=== PATIENT | female | born 1995 | race African-American/Black ===

== ENCOUNTER 2017-03-17 22:50 | Emergency (ER) | payer SELFPAY ==
[2017-03-17 23:16] LABS: APPEARANCE,URINE CLOUDY; BILIRUBIN,URINE NEGATIVE (NEGATIVE); GLUCOSE, URINE NEGATIVE (NEGATIVE); KETONES,URINE 20 mg/dL (NEGATIVE); LEUKOCYTE ESTERASE,URINE MODERATE (NEGATIVE); NITRITE,URINE NEGATIVE (NEGATIVE); PROTEIN,URINE 30 mg/dL (NEGATIVE); URINE SPECIFIC GRAVITY 1.025
--- NOTE | 2017-03-17 23:56 | ER Document Report ---
ED GI/ - General Mode of Arrival: Ambulatory Information source: Patient TRAVEL OUTSIDE OF THE [place] IN LAST 30 DAYS: No <ELTON EMERSON - Last Filed: 03/18/17 00:53> <KIM BARCENAS - Last Filed: 03/18/17 01:52> - General Chief Complaint: Abdominal Pain Stated Complaint: ABDOMINAL PAIN Time Seen by Provider: 03/17/17 23:56 Notes: Patient is a 21 year old female presenting to the emergency department for low abdominal pain. Patient states her pain was onset around 09:30 this morning and she had to leave work because of the pain. Patient describes the pain as " really bad period cramps." Patient states she had a positive test at home. Patient denies any nausea, vomiting, or diarrhea. Patient's last menstrual period was 01/30/2017-02/06/2017. Patient has never been before, she is . Patient denies any surgical history. Patient is a smoker but states she will quit now that she is . (ELTON EMERSON) - Related Data Allergies/Adverse Reactions: No Known Allergies Allergy (Verified 03/18/17 01:39) Past Medical History - General Information source: Patient - Social History Smoking Status: Current Every Day Smoker Chew tobacco use (# tins/day): No Smoking Education Provided: Yes Frequency of alcohol use: None Drug Abuse: None Family History: Other - asthma Patient has suicidal ideation: No Patient has homicidal ideation: No Pulmonary Medical History: Reports: Hx Bronchitis - likely Neurological Medical History: Reports: Hx Migraine Surgical Hx: Negative - Immunizations Immunizations up to date: Yes Hx Diphtheria, Pertussis, Tetanus Vaccination: Yes <ELTON EMERSON - Last Filed: 03/18/17 00:53> Review of Systems - Review of Systems Constitutional: No symptoms reported EENT: No symptoms reported Cardiovascular: No symptoms reported Respiratory: No symptoms reported Gastrointestinal: See HPI, Abdominal pain. denies: Diarrhea, Nausea, Vomiting Genitourinary: No symptoms reported Female Genitourinary: See HPI, Last menstrual period - 01/30/2017-02/06/2017, Musculoskeletal: No symptoms reported Skin: No symptoms reported Hematologic/Lymphatic: No symptoms reported Neurological/Psychological: No symptoms reported -: Yes All other systems reviewed and negative <ELTON EMERSON - Last Filed: 03/18/17 00:53> Physical Exam - Vital signs Interpretation: Normal <JAIRONNIKOLE BUTLERINE - Last Filed: 03/18/17 00:53> <KIM BARCENAS - Last Filed: 03/18/17 01:52> - Vital signs Vitals: Temp Pulse Resp BP Pulse Ox 98.6 F 78 18 113/67 99 03/17/17 22:52 03/17/17 22:52 03/17/17 22:52 03/17/17 22:52 03/17/17 22:52 - Notes Notes: GENERAL: Alert, interacts well. Mild distress. HEAD: Normocephalic, atraumatic. EYES: Appear normal. Pupils equal, round, and reactive to light. ENT: Moist mucus membranes, tongue midline. NECK: Full range of motion. Supple. Trachea midline. LUNGS: Clear to auscultation bilaterally, no wheezes, rales, or rhonchi. No respiratory distress. HEART: Regular rate and rhythm. No murmurs, gallops, or rubs. ABDOMEN: Soft, suprapubic tenderness to palpation. Non-distended. Normal bowel sounds. EXTREMITIES: Moves all 4 extremities spontaneously. Normal strength. No edema. NEUROLOGICAL: Alert and oriented x3. Normal speech. No focal neurological deficits. GCS 15. PSYCH: Normal affect, normal mood. SKIN: Warm, dry, normal turgor. No rashes or lesions noted. (ELTON EMERSON) Course - Laboratory Result Diagrams: 03/17/17 23:59 <IDANIAELTON - Last Filed: 03/18/17 00:53> - Laboratory Result Diagrams: 03/17/17 23:59 - Diagnostic Test Radiology reviewed: Reports reviewed - Ultrasound shows a 6 week 6 day intrauterine with heart rate 121 and 8.9 cm subchorionic bleed. <KIM BARCENAS - Last Filed: 03/18/17 01:52> - Vital Signs Vital signs: Temp Pulse Resp BP Pulse Ox 98.6 F 78 18 113/67 99 03/17/17 22:52 03/17/17 22:52 03/18/17 01:40 03/17/17 22:52 03/17/17 22:52 - Laboratory Laboratory results interpreted by me: 03/17/17 03/17/17 23:00 23:59 WBC 11.1 H RBC 3.70 L Hgb 11.0 L Hct 32.4 L RDW 18.3 H Urine Protein 30 H Urine Ketones 20 H Urine Urobilinogen 4.0 H Ur Leukocyte Esterase MODERATE H Urine Ascorbic Acid 40 H Urine HCG, Qual POSITIVE H Discharge <ELTON EMERSON - Last Filed: 03/18/17 00:53> <KIM BARCENAS - Last Filed: 03/18/17 01:52> - Discharge Clinical Impression: with 6 completed weeks gestation Subchorionic hemorrhage in first trimester Qualifiers: Fetus number: single or unspecified fetus Qualified Code(s): O41.8X10 - Other specified disorders of amniotic fluid and membranes, first trimester, not applicable or unspecified; O46.8X1 - Other antepartum hemorrhage, first trimester Urinary tract infection Qualifiers: Urinary tract infection type: site unspecified Hematuria presence: without hematuria Qualified Code(s): N39.0 - Urinary tract infection, site not specified Condition: Stable Disposition: HOME, SELF-CARE Additional Instructions: Urinary Tract Infection: Your evaluation indicates that you have a urinary tract infection. This is due to germs growing in the bladder. This is a common problem. This infection usually responds quickly to antibiotics. Your antibiotic should be taken exactly as prescribed. Drink plenty of fluids -- three to four quarts a day. Occasionally, a bladder anesthetic will be prescribed to help stop the feeling of urgency until the antibiotic has a chance to clear the infection. This may cause your urine to be dark orange. Certain urine infections require a culture. If the doctor obtained a culture, the results will be back in two days. You should call to see if a change in treatment is needed. A repeat urinalysis after you finish treatment is often recommended. The physician will let you know if further testing is required. Call the doctor if you develop fever, chills, flank pain, inability to urinate, or blood in the urine. I personally performed the services described in the documentation, reviewed and edited the documentation which was dictated to the scribe in my presence, and it accurately records my words and actions. : You are . care is best started as early in as possible. If you're unsure about continuing this , you should discuss this with your physician or with [facility]. You should take only medications approved by your physician. Acetaminophen can safely be taken for minor pains. As a rule, medication for chronic conditions such as asthma or seizures can safely be continued. You should discuss with the physician every medicine you take. Any regular exercise program can be continued. Talk to your physician, however, before engaging in competitive or demanding sports. Alcohol, smoking, and "street drugs" are dangerous to your baby. Cocaine is especially dangerous. Don't use any illicit drugs! //////////////////////////////////////////////////////////////////////////////// //////////////////////////////////////////////////////////////////////////////// //////////////// Your urine analysis suggest you have a urinary tract infection. The urine will be cultured and if a change in antibiotics as needed you will be contacted. Take the antibiotics as prescribed and drink plenty of fluids. Your ultrasound shows a 6 week 6 day intrauterine with heart rate of 121. There is also a small subchorionic bleed which does put this at risk of miscarriage. You should rest, abstain from sex and avoid physical exertion until you no longer have any pelvic discomfort. It would not be unexpected to see some vaginal bleeding develop over the next several days. There is no reason to come to the emergency room if that occurs. Follow-up with the [facility] or with [facility] this week for recheck. RETURN TO THE EMERGENCY ROOM IF ANY NEW OR WORSENING SYMPTOMS. Prescriptions: Cephalexin Monohydrate [Keflex 500 mg Capsule] 500 mg PO QID #10 capsule Referrals: [facility] [Provider Group] - Follow up in 3-5 days Scribe Attestation: 03/18/17 00:39 I personally performed the services described in the documentation, reviewed and edited the documentation which was dictated to the scribe in my presence, and it accurately records my words and actions. (KIM BARCENAS) Scribe Documentation - Scribe Written by Farideh:: Farideh Mi, 03/18/2017 1:00 acting as scribe for :: Nyla <ELTON EMERSON - Last Filed: 03/18/17 00:53>
[2017-03-18 00:28] LABS: ABSOLUTE EOSINOPHILS # (AUTO) 0.1 10^3/uL (0.0-0.6); ABSOLUTE LYMPHOCYTES (AUTO) 2.2 10^3/uL (0.5-4.7); ABSOLUTE MONOCYTES (AUTO) 0.9 10^3/uL (0.1-1.4); ABSOLUTE NEUT (AUTO) 7.9 10^3/uL (1.7-8.2); BASOPHILS % (AUTO) 0.3 % (0-2); EOSINOPHILS % (AUTO) 0.5 % (0-6); HEMATOCRIT 32.4 % (36.0-47.0); HGB HCT DIFFERENCE 0.6; LYMPHOCYTES % (AUTO) 19.9 % (13-45); MEAN CORPUSCULAR HEMOGLOBIN 29.7 pg (27.0-33.4); MEAN CORPUSCULAR HGB CONC 33.9 g/dL (32.0-36.0); MEAN CORPUSCULAR VOLUME 87 fl (80-97); MONOCYTES % (AUTO) 8.4 % (3-13); RED CELL DISTRIBUTION WIDTH 18.3 % (11.5-14.0); SEGMENTED NEUTROPHILS % (AUTO) 70.9 % (42-78); WHITE BLOOD COUNT 11.1 10^3/uL (4.0-10.5)
--- NOTE | 2017-03-18 01:25 | RADIOLOGY REPORT (SQ) ---
EXAM DESCRIPTION: U/S OB TRANSVAGINAL W/O DOP COMPLETED DATE/TIME: 03/18/2017 12:48 am REASON FOR STUDY: pelvic pain, + hcG COMPARISON: None. TECHNIQUE: Transvaginal static and realtime grayscale images acquired of the pelvis. Additional heather cted spectral and color Doppler images recorded. All images stored on PACs. bHCG: Not available. LIMITATIONS: None. FINDINGS: FETUS: Living intrauterine . EGA: 6 weeks and 6 days. LAMIN: 11/05/2017. FHR: 121 beats per minute. SUBCHORIONIC BLEED: Yes. SIZE OF BLEED: 0.9 x 0.8 x 0.3 cm. UTERUS: No masses. No anomalies. CERVICAL LENGTH: 1.7 cm. Closed. RIGHT ADNEXA: Normal ovary with normal vascular flow. No adnexal free fluid. Likely 2.2 cm corpus luteal cyst. 3.6 cm right ovary. LEFT ADNEXA: Normal ovary with normal vascular flow. No adnexal free fluid. No adnexal masses. 2.4 cm left ovary. FREE FLUID: None. OTHER: No other significant finding. IMPRESSION: LIVING INTRAUTERINE , at-risk with 0.9 cm subchorionic hemorrhage. EGA 6 weeks 6 days Trimester of : First - 0 to 13 weeks. TECHNICAL DOCUMENTATION: JOB ID: [id number] [employer]- All Rights Reserved
[2017-03-18] MEDS ORDERED: CEPHALEXIN 500 MG CAPSULE PO ONE (01:44)
[2017-03-18 02:13] VITALS: BP 118/72
== END 2017-03-18 02:10 | disposition home or self-care (01) ==
LOC: ER 22:50
DX: O23.41 Unspecified infection of urinary tract in pregnancy, first trimester (principal); O41.8X10 Other specified disorders of amniotic fluid and membranes, first trimester, not applicable or unspecified; O46.8X1 Other antepartum hemorrhage, first trimester; R10.9 Unspecified abdominal pain; F17.200 Nicotine dependence, unspecified, uncomplicated; Z3A.01 Less than 8 weeks gestation of pregnancy
CPT/HCPCS: 36415; 76817; 81001; 81025; 84702; 85025; 87086; 99284

== ENCOUNTER 2017-05-28 13:15 | Emergency (ER) | payer MEDICAID ==
--- NOTE | 2017-05-28 13:38 | ER Document Report ---
ED Medical Screen (RME) - General Chief Complaint: Abdominal Pain Stated Complaint: ABDOMINAL PAIN Time Seen by Provider: 05/28/17 13:33 Notes: 22-year-old female patient G1 p.o. is 16 weeks . Reports this morning of left lower quadrant abdominal pain cramping which seems to radiate into the back. She states this morning she felt a need to have a bowel movement, could not go despite straining and developed some dry heaves. She does not have a history of kidney stones. She was seen here a few months ago when she found out she is and diagnosed a UTI that time ended up growing lactobacillus in her urine clean- catch. I have greeted and performed a rapid initial assessment of this patient. A comprehensive ED assessment and evaluation of the patient, analysis of test results and completion of the medical decision making process will be conducted by additional ED providers. TRAVEL OUTSIDE OF THE [place] IN LAST 30 DAYS: No - Related Data Allergies/Adverse Reactions: No Known Allergies Allergy (Verified 03/18/17 01:39) Past Medical History Pulmonary Medical History: Reports: Hx Bronchitis - likely Denies: Hx Asthma, Hx Pneumonia Neurological Medical History: Reports: Hx Migraine Renal/ Medical History: Denies: Hx Peritoneal Dialysis - Immunizations Immunizations up to date: Yes Hx Diphtheria, Pertussis, Tetanus Vaccination: Yes Physical Exam - Vital signs Vitals: Temp Pulse Resp BP Pulse Ox 97.6 F 75 18 104/64 100 05/28/17 13:23 05/28/17 13:23 05/28/17 13:23 05/28/17 13:23 05/28/17 13:23 Course - Vital Signs Vital signs: Temp Pulse Resp BP Pulse Ox 97.6 F 75 18 104/64 100 05/28/17 13:23 05/28/17 13:23 05/28/17 13:23 05/28/17 13:23 05/28/17 13:23
[2017-05-28 14:08] LABS: APPEARANCE,URINE CLOUDY; BILIRUBIN,URINE NEGATIVE (NEGATIVE); GLUCOSE, URINE NEGATIVE (NEGATIVE); KETONES,URINE NEGATIVE (NEGATIVE); LEUKOCYTE ESTERASE,URINE LARGE (NEGATIVE); NITRITE,URINE NEGATIVE (NEGATIVE); PROTEIN,URINE 100 mg/dL (NEGATIVE); URINE SPECIFIC GRAVITY 1.029
[2017-05-28 14:13] LABS: BACTERIA,URINE 2+ /HPF
--- NOTE | 2017-05-28 15:04 | ER Document Report ---
ED GI/ - General Chief Complaint: Abdominal Pain Stated Complaint: ABDOMINAL PAIN Time Seen by Provider: 05/28/17 13:33 Notes: The patient is a 22-year-old, 16 weeks , presents with 1 day of suprapubic pain radiating into her left flank with mild dysuria. She had a UTI 6 weeks ago and this feels similar. Patient also having some constipation with hard stools. She denies nausea, vomiting, diarrhea, vaginal bleeding, vaginal discharge, fevers or rash. TRAVEL OUTSIDE OF THE [place] IN LAST 30 DAYS: No - Related Data Allergies/Adverse Reactions: No Known Allergies Allergy (Verified 03/18/17 01:39) Past Medical History - General Information source: Patient - Social History Smoking Status: Never Smoker Chew tobacco use (# tins/day): Yes Frequency of alcohol use: None Family History: Other - asthma Patient has suicidal ideation: No Patient has homicidal ideation: No Pulmonary Medical History: Reports: Hx Bronchitis - likely Denies: Hx Asthma, Hx Pneumonia Neurological Medical History: Reports: Hx Migraine Renal/ Medical History: Denies: Hx Peritoneal Dialysis - Immunizations Immunizations up to date: Yes Hx Diphtheria, Pertussis, Tetanus Vaccination: Yes Review of Systems - Review of Systems Notes: REVIEW OF SYSTEMS: CONSTITUTIONAL: -fevers, -chills EENT: -eye pain, -difficulty swallowing, -nasal congestion CARDIOVASCULAR:-chest pain, -syncope. RESPIRATORY: -cough, -SOB GASTROINTESTINAL: +suprapubic abdominal pain, - nausea, -vomiting, -diarrhea GENITOURINARY: +dysuria, -hematuria MUSCULOSKELETAL: +left flank pain, -neck pain SKIN: -rash or skin lesions. HEMATOLOGIC: -easy bruising or bleeding. LYMPHATIC: -swollen, enlarged glands. NEUROLOGICAL: -altered mental status or loss of consciousness, -headache, - neurologic symptoms PSYCHIATRIC: -anxiety, -depression. ALL OTHER SYSTEMS REVIEWED AND NEGATIVE. Physical Exam - Vital signs Vitals: Temp Pulse Resp BP Pulse Ox 97.6 F 75 18 104/64 100 05/28/17 13:23 05/28/17 13:23 05/28/17 13:23 05/28/17 13:23 05/28/17 13:23 - Notes Notes: PHYSICAL EXAMINATION: GENERAL: Well-appearing, well-nourished and in no acute distress. HEAD: Atraumatic, normocephalic. EYES: Pupils equal round and reactive to light, extraocular movements intact, sclera anicteric, conjunctiva are normal. ENT: nares patent, oropharynx clear without exudates. Moist mucous membranes. NECK: Normal range of motion, supple without lymphadenopathy LUNGS: Breath sounds clear to auscultation bilaterally and equal. No wheezes rales or rhonchi. HEART: Regular rate and rhythm without murmurs ABDOMEN: Soft, gravid, mild suprapubic tenderness, normoactive bowel sounds. No guarding, no rebound. No masses appreciated. BACK: Left CVA tenderness. EXTREMITIES: Normal range of motion, no pitting or edema. No cyanosis. NEUROLOGICAL: Cranial nerves grossly intact. Normal speech, normal gait. Normal sensory and motor exams. PSYCH: Normal mood, normal affect. SKIN: Warm, Dry, normal turgor, no rashes or lesions noted. Course - Re-evaluation Re-evalutation: Patient appears well. Bedside ultrasound shows a single intrauterine fetus with heart rate 162 and size consistent with dates. No kidney stones or hydronephrosis on bedside ultrasound. Urinalysis shows evidence of a UTI and with the left flank pain, will treat for pyelonephritis with Keflex. Patient given very strict return precautions and she understands. She will follow-up with her OB at [facility] this week for a recheck of her symptoms. - Vital Signs Vital signs: Temp Pulse Resp BP Pulse Ox 97.6 F 75 18 104/64 100 05/28/17 13:23 05/28/17 13:23 05/28/17 13:23 05/28/17 13:23 05/28/17 13:23 - Laboratory Laboratory results interpreted by me: 05/28/17 13:38 Urine Protein 100 H Urine Urobilinogen 4.0 H Ur Leukocyte Esterase LARGE H Urine Ascorbic Acid 40 H Discharge - Discharge Clinical Impression: Pyelonephritis affecting Qualifiers: Trimester: second trimester Qualified Code(s): O23.02 - Infections of kidney in , second trimester Condition: Stable Disposition: HOME, SELF-CARE Additional Instructions: PYELONEPHRITIS: Your evaluation shows evidence of pyelonephritis. This is an infection in the kidney. Typical symptoms are fever, pain in the flank, pain on urination, and frequent urination. Many cases of pyelonephritis can be treated at home. Hospital care may be necessary for patients who are very ill, or elderly or . Pyelonephritis is treated with antibiotics. Be sure to take all the medication as prescribed. Drink plenty of liquids (about three quarts per day) . You may take acetaminophen for fever. You should feel significantly improved within two days. You should have a recheck of your urine in about one week to insure that the infection is gone. Return for a re-examination if your symptoms worsen in any way -- such as high fever, shaking chills, severe weakness or dizziness, severe pain, or inability to pass your urine. ANTIBIOTIC THERAPY: You have been given an antibiotic prescription. It's important that you take all the medication, unless instructed otherwise by your physician. Failure to complete the entire course can result in relapse of your condition. Common side effects of antibiotics include nausea, intestinal cramping, or diarrhea. Women may develop vaginal yeast infections, and babies can get yeast (thrush) in the mouth following the use of antibiotics. Contact your physician if you develop significant side effects from this medication. Allergy to this antibiotic can result in hives, wheezing, faintness, or itching. If symptoms of allergy occur, stop the medication and call the doctor. CEPHALEXIN: The antibiotic you've been prescribed is a member of the cephalosporin class. This type of antibiotic covers a wide variety of infections, including those of the skin, lungs, and urinary tract. It's useful for staph infections. This antibiotic is slightly similar to the penicillin family. In rare cases , a person who is allergic to penicillin will also be allergic to this medication. If you have had a severe allergic reaction to penicillin, and have not taken this antibiotic since that time, notify your doctor. Antibiotics which cover many germs ("broad spectrum" antibiotics) are more likely to cause diarrhea or "yeast" infections. Women prone to vaginal yeast problems may suffer an attack after taking this antibiotic. In infants, oral thrush (white spots "stuck" on the cheek) or yeast diaper rash may result. See your doctor if these problems occur. Call at once if you develop itching, hives , shortness of breath, or lightheadedness. USE OF ACETAMINOPHEN (Tylenol): Acetaminophen may be taken for pain relief or fever control. It's much safer than aspirin, offering a wider range of "safe" dosages. It is safe during . Some brand names are Tylenol, Panadol, Datril, Anacin 3, Tempra, and Liquiprin. Acetaminophen can be repeated every four hours. The following are maximum recommended dosages: >89 pounds or adults 650 mg to 900 mg Acetaminophen can be repeated every four hours. Maximum dose not to exceed 4000 mg a day. FOLLOW-UP CARE: If you have been referred to a physician for follow-up care, call the physician s office for an appointment as you were instructed or within the next two days. If you experience worsening or a significant change in your symptoms, notify the physician immediately or return to the Emergency Department at any time for re-evaluation. Prescriptions: Cephalexin Monohydrate [Keflex 500 mg Capsule] 500 mg PO TID 10 Days capsule Referrals: [facility] [Provider Group] - Follow up as needed
[2017-05-28 15:24] VITALS: BP 96/58
== END 2017-05-28 15:19 | disposition home or self-care (01) ==
LOC: ER 13:15
DX: O23.02 Infections of kidney in pregnancy, second trimester (principal); O99.612 Diseases of the digestive system complicating pregnancy, second trimester; K59.00 Constipation, unspecified; O26.892 Other specified pregnancy related conditions, second trimester; R10.30 Lower abdominal pain, unspecified; R30.0 Dysuria; Z72.0 Tobacco use; Z3A.16 16 weeks gestation of pregnancy
CPT/HCPCS: 81001; 99284

== ENCOUNTER 2017-09-21 23:20 | Outpatient (CLI) | payer MEDICAID ==
[2017-09-22 00:42] LABS: APPEARANCE,URINE CLEAR; BILIRUBIN,URINE MODERATE (NEGATIVE); COLOR,URINE YELLOW; GLUCOSE, URINE NEGATIVE (NEGATIVE); KETONES,URINE NEGATIVE (NEGATIVE); LEUKOCYTE ESTERASE,URINE LARGE (NEGATIVE); NITRITE,URINE NEGATIVE (NEGATIVE); PROTEIN,URINE 30 mg/dL (NEGATIVE); URINE SPECIFIC GRAVITY 1.021
--- NOTE | 2017-09-22 01:17 | Non Stress Test Report ---
Non Stress Test Datetime Report Generated by CPN: 09/22/2017 01:16 DEMOGRAPHIC EGA NST: 33.3 INDICATION Indication for Study: Ordered by Provider URINE RESULTS Urine Protein, NST: Positive Urine Ketones - NST: Negative Urine Glucose - NST: Negative Urine Blood - NST: Negative MONITORING Monitor Explained: Monitor Explained; Test Explained; Patient Verbalized Understanding Time on Monitor: 09/21/2017 23:38 Time off Monitor: 09/22/2017 01:13 NST Duration: 95 NST INTERVENTIONS NST Interventions: PO Hydration Physician Notified NST: Dr. Ya BABY A: [id number] BABY A Movement : Present Contraction Frequency : Occasional FHR Baseline : 135 Accelerations : 15X15 Decelerations : None Variability : Moderate 6-25bpm NST Review: Meets Criteria for Reactive NST NST Review and Verified By : miranda ARAMBULA Results: Reactive NST REPORT Report Trigger: Send Report
[2017-09-22 01:25] LABS: URINE AMPHETAMINES SCREEN NEGATIVE; URINE BARBITURATES SCREEN NEGATIVE; URINE BENZODIAZEPINES SCREEN NEGATIVE; URINE COCAINE SCREEN NEGATIVE; URINE METHADONE SCREEN NEGATIVE; URINE PHENCYCLIDINE SCREEN NEGATIVE
[2017-09-22 01:27] LABS: URINE MARIJUANA (THC) SCREEN UNCONFIRMED POSITIVE
== END 2017-09-22 01:20 | disposition home or self-care (01) ==
LOC: LC 23:20
PROVIDERS: ATTEND Obstetrics & Gynecology Gynecology
PROC: 4A1HXCZ Monitoring of Products of Conception, Cardiac Rate, External Approach (ICD-10-PCS; principal; 2017-09-21)
DX: O47.03 False labor before 37 completed weeks of gestation, third trimester (principal); Z3A.33 33 weeks gestation of pregnancy
CPT/HCPCS: 59025; 81001; 80307; G0480 ×2

== ENCOUNTER 2017-11-04 00:47 | Outpatient (CLI) | payer MEDICAID ==
[2017-11-04 01:26] LABS: APPEARANCE,URINE SLIGHTLY-CLOUDY; BILIRUBIN,URINE NEGATIVE (NEGATIVE); COLOR,URINE YELLOW; GLUCOSE, URINE NEGATIVE (NEGATIVE); KETONES,URINE NEGATIVE (NEGATIVE); LEUKOCYTE ESTERASE,URINE LARGE (NEGATIVE); NITRITE,URINE NEGATIVE (NEGATIVE); PROTEIN,URINE NEGATIVE (NEGATIVE); URINE SPECIFIC GRAVITY 1.009
[2017-11-04 01:37] LABS: AMNISURE (ROM) NEGATIVE (NEGATIVE)
--- NOTE | 2017-11-04 02:38 | Non Stress Test Report ---
Non Stress Test Datetime Report Generated by CPN: 11/04/2017 02:37 DEMOGRAPHIC Test Number: 2 EGA NST: 39.5 INDICATION Indication for Study: Ordered by Provider MONITORING Monitor Explained: Monitor Explained; Test Explained; Patient Verbalized Understanding Time on Monitor: 11/04/2017 00:59 Time off Monitor: 11/04/2017 01:46 NST Duration: 47 NST INTERVENTIONS NST Interventions: PO Hydration; Reposition Patient Physician Notified NST: Dr Ya BABY A: [id number] BABY A Movement : Present Contraction Frequency : rare FHR Baseline : 130 Accelerations : 15X15 Decelerations : None Variability : Moderate 6-25bpm NST Review: Meets Criteria for Reactive NST NST Review and Verified By : Gris Bellavaze RNC NST Results: Reactive NST REPORT Report Trigger: Send Report
[2017-11-04 04:43] LABS: URINE AMPHETAMINES SCREEN NEGATIVE; URINE BENZODIAZEPINES SCREEN NEGATIVE; URINE COCAINE SCREEN NEGATIVE; URINE MARIJUANA (THC) SCREEN NEGATIVE; URINE METHADONE SCREEN NEGATIVE; URINE PHENCYCLIDINE SCREEN NEGATIVE
[2017-11-04 05:30] LABS: URINE BARBITURATES SCREEN NEGATIVE
== END 2017-11-04 02:39 | disposition home or self-care (01) ==
LOC: LC 00:47 → UNDOADMIN 11-05 21:26 → LR 11-05 21:26
PROVIDERS: ATTEND Obstetrics & Gynecology Gynecology
PROC: 4A1HXCZ Monitoring of Products of Conception, Cardiac Rate, External Approach (ICD-10-PCS; principal; 2017-11-04)
DX: O47.1 False labor at or after 37 completed weeks of gestation (principal); Z3A.39 39 weeks gestation of pregnancy
CPT/HCPCS: 59025; 80307; 81005; 84112

== ENCOUNTER 2017-11-05 07:40 | Inpatient (IN) | payer MEDICAID ==
[2017-11-05] MEDS ORDERED: HYDROXYZINE PAMOATE 50 MG CAPSULE PO ONE (08:10)
[2017-11-05] MEDS ORDERED: HYDROXYZINE PAMOATE 50 MG CAPSULE ONE (08:13)
[2017-11-05 08:36] LABS: APPEARANCE,URINE CLOUDY; BILIRUBIN,URINE NEGATIVE (NEGATIVE); GLUCOSE, URINE NEGATIVE (NEGATIVE); KETONES,URINE NEGATIVE (NEGATIVE); LEUKOCYTE ESTERASE,URINE LARGE (NEGATIVE); NITRITE,URINE NEGATIVE (NEGATIVE); PROTEIN,URINE 30 mg/dL (NEGATIVE); URINE SPECIFIC GRAVITY 1.019
[2017-11-05 08:39] LABS: COLOR,URINE DARK YELLOW
[2017-11-05 09:15] LABS: ABSOLUTE LYMPHOCYTES (AUTO) 1.3 10^3/uL (0.5-4.7); ABSOLUTE NEUT (AUTO) 7.7 10^3/uL (1.7-8.2); BASOPHILS % (AUTO) 0.2 % (0-2); EOSINOPHILS % (AUTO) 0.4 % (0-6); HEMATOCRIT 32.9 % (36.0-47.0); HEMOGLOBIN 11.3 g/dL (12.0-15.5); LYMPHOCYTES % (AUTO) 12.8 % (13-45); MEAN CORPUSCULAR HEMOGLOBIN 30.7 pg (27.0-33.4); MEAN CORPUSCULAR HGB CONC 34.2 g/dL (32.0-36.0); MEAN CORPUSCULAR VOLUME 90 fl (80-97); MONOCYTES % (AUTO) 10.1 % (3-13); PLATELET COUNT 191 10^3/uL (150-450); RED BLOOD COUNT 3.67 10^6/uL (3.72-5.28); RED CELL DISTRIBUTION WIDTH 13.5 % (11.5-14.0); SEGMENTED NEUTROPHILS % (AUTO) 76.5 % (42-78); TOTAL CELLS COUNTED % (AUTO) 100 %; WHITE BLOOD COUNT 10.1 10^3/uL (4.0-10.5)
[2017-11-05 09:27] LABS: URINE AMPHETAMINES SCREEN NEGATIVE; URINE BARBITURATES SCREEN NEGATIVE; URINE BENZODIAZEPINES SCREEN NEGATIVE; URINE COCAINE SCREEN NEGATIVE; URINE METHADONE SCREEN NEGATIVE; URINE PHENCYCLIDINE SCREEN NEGATIVE
[2017-11-05 09:32] LABS: URINE MARIJUANA (THC) SCREEN UNCONFIRMED POSITIVE
[2017-11-05] MEDS ORDERED: RINGERS SOLUTION,LACTATED 1,000 ML IV ONE (10:34)
[2017-11-05] MEDS ORDERED: RINGERS SOLUTION,LACTATED 1,000 ML IV PRN (10:34)
[2017-11-05] MEDS ORDERED: BUPIVACAINE HCL 0.25 % INJ/PF (2.5 MG/1 ML) 30 ML VIAL ONE (12:22)
[2017-11-05] MEDS ORDERED: FENTANYL/BUPIVACAINE/NS/PF 300 MCG/150 ML RTUINJ EPI ONE (12:22)
[2017-11-05] MEDS ORDERED: EPHEDRINE SULFATE INJ 50 MG/1 ML AMPULE ONE (12:22)
[2017-11-05] MEDS ORDERED: OXYTOCIN/NORMAL SALINE 20 UNIT/1,000 ML RTUINJ ONE (14:25)
--- NOTE | 2017-11-05 14:28 | L&D Progress Notes ---
PROGRESS NOTES Datetime Report Generated by CPN: 11/05/2017 14:28 PROGRESS NOTE Impression: Normal Progression of Labor Procedures: Artificial ROM Plan: Continue Present Management Vital Signs : Reviewed Comment: Pt comfortable after epidural AROM, thick mec Start pitocin. VAGINAL EXAM Dilatation: 5 Effacement: 80 Station: -1 MEMBRANES Membranes: Ruptured Amniotic Fluid Color: Meconium, Heavy FETUS A FHR - Baseline: 140 Monitoring: External US Variability: Moderate 6-25bpm Accelerations: 15X15 Decelerations: None FHR Category: Category I SIGNATURE SIGNATURE: [id number] SIGNATURE: [id number] SIGNATURE: [id number] Assignment: Jennifer Nunez MD Signature: with User ID: [email or web address] : with User ID: [email or web address]
[2017-11-05] MEDS ORDERED: OXYTOCIN/NORMAL SALINE 20 UNIT/1,000 ML RTUINJ IV PRN ×2 (14:29→21:05)
--- NOTE | 2017-11-05 16:05 | Admission Physical ---
Datetime Report Generated by CPN: 11/05/2017 16:05 CURRENT ADMISSION Chief Complaint: Uterine Contractions Indication for Induction: Not Applicable Admit Impression : Term, Intrauterine ; Active Labor; Intact Membranes Admit Plan: Admit to Unit; Initiate Labor Protocol ALLERGIES Medication Allergies: No Medication Allergies: No Known Allergies (11/05/2017) Latex: No Latex Allergies Food Allergies: denies Environmental Allergies: denies OBSTETRICAL HISTORY EDC: 11/06/2017 00:00 : 1 Para: 0 Term: 0 : 0 SAB: 0 IAB: 0 Ectopic: 0 Livin Cesareans: 0 VBACs: 0 Multiple Births: 0 Gestational Diabetes: No Rh Sensitization: No Incompetent Cervix: No IGOR: No Infertility: No ART Treatment: No Uterine Anomaly: No IUGR: No Hx Previous C/S: No Macrosomia: No Hx Loss/Stillborn: No PIH: No Hx : No Placenta Previa/Abruption: No Depression/PP Depression: No PTL/PROM: No Post Hemorrhage: No Current Procedures: Ultrasound Obstetrical History Comments: G1 "pt reports a 20 week loss that she did not report to [facility] bc she does not like to talk about it" G1?: current SEE RECORDS Alcohol: No Marijuana : Yes Marijuana Comments: THC+ 09/22/2017 Cocaine: No Other Illicit Drugs: No Cigarettes: Former Smoker. 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 Surgery: No Heart Disease: No Hosp/Surgery: No Autoimmune Disorder: No Anesthetic Complications: No Kidney Disease: No Abnormal Pap Smear: No Neuro/Epilepsy: No Psychiatric Disorders: No Other Medical Diseases: No Hepatitis/Liver Disease: No Significant Family History: No Varicosities/Phlebitis: No Trauma/Violence : No Thyroid Dysfunction: No INFECTIOUS HISTORY Gonorrhea: No Genital Herpes: No Chlamydia: Yes Tuberculosis: No Syphilis: No Hepatitis: No HIV/AIDS Exposure: No Rash or Viral Illness: No HPV: No Infectious History Comments: chlamydia in 2013 PHYSICAL EXAM General: Normal HEENT: Normal Neurologic: Normal Thyroid: Deferred Heart: Normal Lungs: Normal Breast: Deferred Back: Normal Abdomen: Normal Genitourinary Exam: Normal Extremities: Normal DTRs: Normal Pelvic Type: Adequate Vital Signs: Reviewed VAGINAL EXAM Dilatation: 4 Effacement: 80 Station: -2 Contraction Comments: q 3-5 MEMBRANES Membranes: Ruptured Amniotic Fluid Color: Meconium, Heavy FETUS A EGA: 39.6 Monitoring: External US FHR- Baseline: 125 Variability: Moderate 6-25bpm Accelerations: 15X15 Decelerations: None Presentation: Vertex Admit Comment: 22yo (reports h/o 16wks loss) at 39+6ega presents for regular uterine ctx. She reports that she has been having uterine ctx most of the morning and they are getting stronger and closer together. She walked this am and changed cervix from 2 to 4 then 3 then now 4 cm. Reviewed early labor and admission. Will augment if needed with pitocin. Membranes intact. Admit for labor. epidural upon patient request. Reassuring FWB. Anticpate . pelvis adequate for MALIA PLANS FOR LABOR AND DELIVERY Labor and Delivery: None Pain Management: Epidural Feeding Preference: Both Benefit of Breast Feed Discussed: Yes Circumcision: Yes INFORMED CONSENT Informed Consent Obtained: Vaginal Delivery; Risks, Benefits and Alternatives Discussed Signature: with User ID: [email or web address]
[2017-11-05] MEDS ORDERED: LIDOCAINE 1% INJ-PF (10 MG/ML) 30 ML SDV ONE (17:38)
[2017-11-05] MEDS ORDERED: MISOPROSTOL 0.2 MG TABLET ONE (17:38)
[2017-11-05] MEDS ORDERED: PROMETHAZINE HCL 25 MG SUPP.RECT PR PRN (21:05)
[2017-11-05] MEDS ORDERED: ACETAMINOPHEN WITH CODEINE #3 TABLET PO PRN ×2 (21:05)
[2017-11-05] MEDS ORDERED: DIPHENHYDRAMINE HCL 25 MG CAPSULE PO PRN (21:05)
[2017-11-05] MEDS ORDERED: MEASLES,MUMPS&RUBELLA VACC/PF 0.5 ML VIAL SUBCUT PRN (21:05)
[2017-11-05] MEDS ORDERED: GLYCERIN/WITCH HAZEL LEAF 1 EACH MED..PAD TP PRN (21:05)
[2017-11-05] MEDS ORDERED: PROMETHAZINE HCL INJ 25 MG/1 ML VIAL IV PRN (21:05)
[2017-11-05] MEDS ORDERED: PROMETHAZINE HCL 25 MG TABLET PO PRN (21:05)
[2017-11-05] MEDS ORDERED: MAGNESIUM HYDROXIDE SUSP 30 ML UDCUP PO PRN (21:05)
[2017-11-05] MEDS ORDERED: MISOPROSTOL 0.2 MG TABLET PR ONE (21:05)
[2017-11-05] MEDS ORDERED: ACETAMINOPHEN 325 MG TABLET PO PRN (21:05)
[2017-11-05] MEDS ORDERED: DIPH/PERTUSS(ACELL)/TETANUS VAC/PF 0.5 ML SYR (>=10YO) IM PRN (21:05)
[2017-11-05] MEDS ORDERED: NA PHOS,M-B/NA PHOS,DI-BA (ADULT) 133 ML ENEMA PR PRN (21:05)
[2017-11-05] MEDS ORDERED: PSEUDOEPHEDRINE HCL 30 MG TABLET PO PRN (21:05)
[2017-11-05] MEDS ORDERED: ZOLPIDEM TARTRATE 5 MG TABLET PO PRN (21:05)
[2017-11-05] MEDS ORDERED: DIBUCAINE 1% OINTMENT 28 GM TP PRN (21:05)
[2017-11-05] MEDS ORDERED: BENZOCAINE/MENTHOL AEROSOL SPRAY 56 ML TOP PRN (21:05)
[2017-11-05] MEDS: FAMOTIDINE 20 MG TABLET PO SCH (22:13)
[2017-11-05] MEDS: IBUPROFEN 800 MG TABLET PO SCH (22:13)
[2017-11-05] MEDS ORDERED: IBUPROFEN 800 MG TABLET ONE (22:14)
[2017-11-05] MEDS ORDERED: FAMOTIDINE 20 MG TABLET ONE (22:14)
[2017-11-05] MEDS ORDERED: GENTAMICIN SULFATE INJ 80 MG/2 ML VIAL IM SCH (22:30)
[2017-11-05] MEDS ORDERED: GENTAMICIN SULFATE INJ 80 MG/2 ML VIAL IV SCH ×2 (22:35→22:45)
[2017-11-05] MEDS ORDERED: GENTAMICIN SULFATE INJ 80 MG/2 ML VIAL ONE (22:45)
[2017-11-05] MEDS ORDERED: GENTAMICIN SULFATE 160 MG in DEXTROSE 5%-WATER 100 ML IV ONE (23:00)
[2017-11-06] MEDS ORDERED: AMPICILLIN SOD INJ 2 GM VIAL IM SCH
[2017-11-06] MEDS ORDERED: AMPICILLIN SOD INJ 2 GM VIAL IV SCH (00:43)
[2017-11-06] MEDS ORDERED: AMPICILLIN SOD INJ 2 GM VIAL IV PRN (01:18)
[2017-11-06] MEDS ORDERED: AMPICILLIN SODIUM 2 GM in NORMAL SALINE 100 ML IV ONE (01:30)
[2017-11-06] MEDS ORDERED: AMPICILLIN SOD INJ 2 GM VIAL ONE ×2 (02:11→02:22)
[2017-11-06] MEDS ORDERED: GENTAMICIN SULFATE INJ 80 MG/2 ML VIAL ONE (05:15)
[2017-11-06] MEDS ORDERED: AMPICILLIN SODIUM 2 GM in NORMAL SALINE 100 ML IV SCH (06:00)
[2017-11-06] MEDS: GENTAMICIN SULFATE 120 MG in DEXTROSE 5%-WATER 100 ML IV SCH ×3 (06:14→21:42)
[2017-11-06] MEDS: IBUPROFEN 800 MG TABLET PO SCH ×3 (07:08→21:42)
[2017-11-06 07:15] LABS: HEMATOCRIT 27.5 % (36.0-47.0); MEAN CORPUSCULAR HGB CONC 33.5 g/dL (32.0-36.0); MEAN CORPUSCULAR VOLUME 89 fl (80-97); PLATELET COUNT 156 10^3/uL (150-450); RED BLOOD COUNT 3.07 10^6/uL (3.72-5.28); RED CELL DISTRIBUTION WIDTH 13.6 % (11.5-14.0); WHITE BLOOD COUNT 12.6 10^3/uL (4.0-10.5)
[2017-11-06 07:20] LABS: HEMOGLOBIN 9.2 g/dL (12.0-15.5)
[2017-11-06] MEDS: AMPICILLIN SODIUM 2 GM in NORMAL SALINE 100 ML IV SCH ×3 (09:49→21:06)
[2017-11-06] MEDS: SENNOSIDES/DOCUSATE 8.6-50 MG 1 EACH TABLET PO SCH (09:51)
[2017-11-06] MEDS: FAMOTIDINE 20 MG TABLET PO SCH ×2 (09:51→21:42)
[2017-11-06] MEDS: PRENATAL VITAMIN W DHA CAPSULE PO SCH (09:51)
[2017-11-06] MEDS: DOCUSATE SODIUM 100 MG CAPSULE PO SCH ×2 (09:51→17:52)
[2017-11-06] MEDS: FERROUS SULFATE 325 MG TABLET PO SCH ×2 (09:52→17:52)
--- NOTE | 2017-11-06 10:17 | PDOC PROGRESS REPORT ---
Subjective-OB Progress Note for:: 11/06/17 Subjective: Denies signs PIH-no visual changes, CHAN, or right quadrant pain. Physical Exam (OB) Vital Signs: Temp Pulse Resp BP Pulse Ox 99.3 F 83 18 135/89 H 100 11/06/17 08:43 11/06/17 08:43 11/06/17 08:43 11/06/17 08:43 11/06/17 08:43 Intake & Output 11/05/17 11/06/17 11/07/17 06:59 06:59 06:59 Weight 78.5 kg - PIH/Pre-Eclampsia DTR's: 2 + Clonus: Negative Headache: Absent Epigastric Pain: No Visual Changes: No - Lochia Lochia Amount: Small 10-25 ml Lochia Color: Rubra/Red - Abdomen Description: Tender, Soft, Round Hernia Present: No Bowel Sounds: Normoactive Flatus Presence: Present Stool: No Fundal Description: Firm, Midline Fundal Height: u/u - u/2 Objective-Diagnostic Laboratory: 11/06/17 06:53 11/06/17 06:53 WBC 12.6 H RBC 3.07 L Hgb 9.2 L D Hct 27.5 L MCV 89 MCH 30.0 MCHC 33.5 RDW 13.6 Plt Count 156
[2017-11-07] MEDS: AMPICILLIN SODIUM 2 GM in NORMAL SALINE 100 ML IV SCH ×2 (03:03→09:44)
[2017-11-07] MEDS: GENTAMICIN SULFATE 120 MG in DEXTROSE 5%-WATER 100 ML IV SCH (05:27)
[2017-11-07] MEDS: IBUPROFEN 800 MG TABLET PO SCH (05:27)
[2017-11-07] MEDS: SENNOSIDES/DOCUSATE 8.6-50 MG 1 EACH TABLET PO SCH (09:44)
[2017-11-07] MEDS: FERROUS SULFATE 325 MG TABLET PO SCH (09:44)
[2017-11-07] MEDS: FAMOTIDINE 20 MG TABLET PO SCH (09:44)
[2017-11-07] MEDS: PRENATAL VITAMIN W DHA CAPSULE PO SCH (09:44)
[2017-11-07] MEDS: DOCUSATE SODIUM 100 MG CAPSULE PO SCH (09:44)
--- NOTE | 2017-11-07 10:54 | PDOC DISCHARGE SUMMARY ---
Final Diagnosis Discharge Date: 11/07/17 - Final Diagnosis (1) Vaginal delivery Is this a current diagnosis for this admission?: Yes (2) Active labor at term Is this a current diagnosis for this admission?: Yes Discharge Data - Discharge Medication Prescriptions: Ferrous Sulfate [Feosol 325 mg Tablet] 325 mg PO BID #60 tablet Ibuprofen [Motrin 800 mg Tablet] 800 mg PO Q8 #60 tablet Home Medications: Vit/Iron Fum/Folic AC [ Tablet] 1 each PO DAILY 09/22/17 Ferrous Sulfate [Feosol 325 mg Tablet] 325 mg PO BID #60 tablet 11/07/17 Ibuprofen [Motrin 800 mg Tablet] 800 mg PO Q8 #60 tablet 11/07/17 Procedures: NST Intrapartum Procedure(s): Spontaneous Vaginal Delivery - Diagnosis Test Laboratory: Temp Pulse Resp BP Pulse Ox 97.7 F 82 18 121/85 97 11/07/17 08:09 11/07/17 08:09 11/07/17 08:09 11/07/17 08:09 11/07/17 08:09 11/05/17 11/05/17 11/06/17 07:48 08:52 06:53 RBC 3.67 L 3.07 L Hgb 11.3 L 9.2 L D Hct 32.9 L 27.5 L Urine Opiates Screen NEGATIVE - Discharge information/Instructions Discharge Activity: Balance Activity w/Rest Discharge Diet: Regular Disposition: HOME, SELF-CARE Follow up with: [facility] in: 3, Weeks
[2017-11-07 13:16] VITALS: BP 130/76
--- NOTE | 2017-11-13 10:09 | Delivery Summary ---
Del Sum A-C Datetime Report Generated by CPN: 11/13/2017 10:09 DELIVERY PERSONNEL DELIVERY PERSONNEL: [id number] Delivery Doctor:: Jennifer Nunez MD Anesthesiologist:: Malachi Ho MD Labor and Delivery Nurse:: Karissa Chen RN Nursery Nurse:: Dolly Grayson RN Pier Worker/SLIP SEAT COVERER: Arelidrew Burns, CLERGY MEMBER MATERNAL INFORMATION Delivery Anesthesia: Epidural Medications After Delivery: Pitocin Drip 20 Units/1000ml NSS; Other-Please Comment Meds After Delivery Comment: 1000mcg cytotec Maternal Complications: None Provider Comments: VMI delivered in MELISSA presentation with no nuchal cord. Thick meconium noted. Shoulders and body delivered without difficulty. Cord doubly clamped and cut and to warmer for NRP due to thick meconium. Placenta delivered intact spontaneously. FF at U but lower uterine segment with some atony - pitocin and cytotec given. 1000mcg cytotec AL given. Superficial vaginal laceration repaired with good hemostasis. Mother and baby stable upon provider leaving the room. LABOR SUMMARY EDC: 11/06/2017 00:00 No. Babies in Womb: 1 Attempted: No Labor Anesthesia: Epidural LABOR INFORMATION Reason for Induction: Not Applicable Onset of Labor: 11/05/2017 17:14 Complete Dilatation: 11/05/2017 20:26 Oxytocin: Augmentation Group B Beta Strep: Negative (Annotations: Data stored by CPN on behalf of user) Steroids Given: None Reason Steroids Not Administered: Not Applicable MEMBRANES Membranes Rupture Method: Artificial Rupture of Membranes: 11/05/2017 14:28 Length of Rupture (hr): 6.30 Amniotic Fluid Color: Heavy Meconium Amniotic Fluid Amount: Scant Amniotic Fluid Odor: Normal STAGES OF LABOR Stage 1 hr: 3 Stage 1 min: 12 Stage 2 hr: 0 Stage 2 min: 20 Stage 3 hr: 0 Stage 3 min: 3 Total Time in Labor hr: 3 Total Time in Labor min: 35 VAGINAL DELIVERY Episiotomy: None Laceration #1: Vaginal Laceration Extension #1: N/A Laceration Repair: Yes Laceration Repair Note: superficial vaginal laceration repaired in usual fashion for hemostasis. Sponge Count Correct: Yes Sharps Count Correct: Yes CSECTION DELIVERY Primary Indication: N/A Secondary Indication: N/A CSection Incision: N/A BABY A INFORMATION Delivery Date/Time: 11/05/2017 20:46 Method of Delivery: Vaginal Born in Route : No : N/A Forceps: N/A Vacuum Extraction: N/A Shoulder Dystocia : No PRESENTATION/POSITION BABY A Presentation: Cephalic Presentation: Cephalic Presentation: Cephalic Presentation: Cephalic Cephalic Presentation: Vertex Vertex Position: Right Occipital Anterior Breech Presentation: N/A PLACENTA INFORMATION BABY A Placenta Delivery Time : 11/05/2017 20:49 Placenta Method of Delivery: Spontaneous Placenta Status: Delivered SCORES BABY A Heart Rate 1 min: >100 bpm Resp Effort 1 min: Good Cry Reflex Irritability 1 min: Cough or Sneeze or Pulls Away Muscle Tone 1 min: Some Flexion of Extremities Color 1 min: Blue/Pale SCORE 1 MIN: 7 Heart Rate 5 min: >100 bpm Resp Effort 5 min: Good Cry Reflex Irritability 5 min: Cough or Sneeze or Pulls Away Muscle Tone 5 min: Active Motion Color 5 min: Body [place], Extremities Blue SCORE 5 MIN: 9 INFORMATION BABY A Gestational Age at Delivery: 39.6 Gestational Status: Full Term- 39- 40.6 Weeks Infant Outcome : Liveborn Condition : Stable Sex: Male IDENTIFICATION BABY A Infant Verification Date/Time: 11/05/2017 21:27 ID Band Number: [id number] Mother's Name Verified: Yes Infant RN Verifying Infant: C. Gentilin, RN Additional Verifying Personnel: D. Maeve WEIGHT/LENGTH BABY A Infant Birthweight (gm): 3740 Weight (lb): 8 Weight (oz): 4 Length (in): 20.50 Length (cm): 52.07 CORD INFORMATION BABY A No. Cord Vessels: 3 Nuchal Cord : N/A Cord Blood Taken: Yes-For Eval (Mom's Blood Type - or O+) Suction: None ASSESSMENT BABY A Skin to Skin: Yes Skin to Skin: Yes SIGNATURES Signature: with User ID: [email or web address]
== END 2017-11-07 13:58 | disposition home or self-care (01) | DRG 775 ==
LOC: LC 07:40 → LR 10:39 → 2S 23:26
PROVIDERS: ADMIT Student in an Organized Health Care Education/Training Program; ATTEND Student in an Organized Health Care Education/Training Program
PROC: 10E0XZZ Delivery of Products of Conception, External Approach (ICD-10-PCS; principal; 2017-11-05)
PROC: 4A1HXCZ Monitoring of Products of Conception, Cardiac Rate, External Approach (ICD-10-PCS; 2017-11-05)
PROC: 0HQ9XZZ Repair Perineum Skin, External Approach (ICD-10-PCS; 2017-11-05)
PROC: 10907ZC Drainage of Amniotic Fluid, Therapeutic from Products of Conception, Via Natural or Artificial Opening (ICD-10-PCS; 2017-11-05)
PROC: 3E0234Z Introduction of Serum, Toxoid and Vaccine into Muscle, Percutaneous Approach (ICD-10-PCS; 2017-11-07)
DX: O77.0 Labor and delivery complicated by meconium in amniotic fluid (principal); O99.324 Drug use complicating childbirth; F12.90 Cannabis use, unspecified, uncomplicated; O62.2 Other uterine inertia; O70.0 First degree perineal laceration during delivery; Z87.891 Personal history of nicotine dependence; Z86.19 Personal history of other infectious and parasitic diseases; Z23 Encounter for immunization
CPT/HCPCS: 36415; 80307; 81005; 85025; 85027; 86592; 86850; 86900; 86901; 90715; G0480; J0290; J1580; J2590; J3010; J3490

== ENCOUNTER 2018-06-26 17:30 | Emergency (ER) | payer SELFPAY ==
[2018-06-26 17:59] VITALS: BP 115/81
[2018-06-26] MEDS ORDERED: PSEUDOEPHEDRINE HCL 30 MG TABLET PO ONE (20:13)
[2018-06-26] MEDS ORDERED: GUAIFENESIN 600 MG TABLET.SA PO ONE (20:13)
[2018-06-26] MEDS ORDERED: LORATADINE 10 MG TABLET PO ONE (20:14)
[2018-06-26] MEDS ORDERED: IBUPROFEN 600 MG TABLET PO ONE (20:14)
--- NOTE | 2018-06-26 20:19 | ER Document Report ---
ED ENT - General Chief Complaint: Cough Stated Complaint: FLU SYMPTOMS Time Seen by Provider: 06/26/18 19:46 Mode of Arrival: Ambulatory Information source: Patient Notes: 23-year-old female presents to ED for complaint of cough cold congestion runny nose and body aches for the last 2 days. She states she took some DayQuil this morning but has not had any Tylenol or Motrin. Patient is alert oriented pupils equal and react to light respirations regular and unlabored speaking in full sentences. TRAVEL OUTSIDE OF THE [place] IN LAST 30 DAYS: No - HPI Patient complains to provider of: Nose problem, Throat problem Onset: Other - 2 days Onset/Duration: Intermittent Quality of pain: Achy Severity: Moderate Pain Level: 3 Context: Recent Illness Location of pain: Nose, Sinus, Throat Associated symptoms: Congestion, Cough, Runny nose, Sinus pain, Sinus drainage, Sore throat. denies: Fever Similar symptoms previously: Yes Recently seen / treated by doctor: No - Related Data Allergies/Adverse Reactions: No Known Allergies Allergy (Verified 11/05/17 07:54) Past Medical History - General Information source: Patient - Social History Smoking Status: Current Every Day Smoker Cigarette use (# per day): Yes - 1/3 pack/day Chew tobacco use (# tins/day): No Smoking Education Provided: Yes - 4 minutes Frequency of alcohol use: Social Drug Abuse: None Occupation: [employer] Family History: Reviewed & Not Pertinent, Other - asthma Patient has suicidal ideation: No Patient has homicidal ideation: No - Past Medical History Cardiac Medical History: Reports: None Pulmonary Medical History: Reports: Hx Bronchitis - likely EENT Medical History: Reports: None Neurological Medical History: Reports: Hx Migraine Endocrine Medical History: Reports: None Renal/ Medical History: Reports: None Malignancy Medical History: Reports: None GI Medical History: Reports: None Musculoskeletal Medical History: Reports None Skin Medical History: Reports None Psychiatric Medical History: Reports: None Traumatic Medical History: Reports: None Infectious Medical History: Reports: None Surgical Hx: Negative Past Surgical History: Reports: None - Immunizations Immunizations up to date: Yes Hx Diphtheria, Pertussis, Tetanus Vaccination: Yes Review of Systems - Review of Systems Constitutional: Chills, Recent illness EENT: Nose discharge, Sinus pressure, Sinus discharge, Throat pain Cardiovascular: No symptoms reported Respiratory: Cough. denies: Sputum Gastrointestinal: No symptoms reported Genitourinary: No symptoms reported Female Genitourinary: No symptoms reported Musculoskeletal: No symptoms reported Skin: No symptoms reported Hematologic/Lymphatic: No symptoms reported Neurological/Psychological: No symptoms reported -: Yes All other systems reviewed and negative Physical Exam - Vital signs Vitals: Temp Pulse Resp BP Pulse Ox 98.4 F 88 16 115/81 97 06/26/18 17:58 06/26/18 17:58 06/26/18 17:58 06/26/18 17:58 06/26/18 17:58 Interpretation: Normal - General General appearance: Appears well, Alert - HEENT Head: Normocephalic, Atraumatic Eyes: Normal Pupils: PERRL Ears: Normal External canal: Normal Tympanic membrane: Normal Sinus: Normal Nasal: Purulent discharge, Swelling Mouth/Lips: Normal Mucous membranes: Normal Pharynx: Post nasal drainage Neck: Normal - Respiratory Respiratory status: No respiratory distress Chest status: Nontender Breath sounds: Nonproductive cough Chest palpation: Normal - Cardiovascular Rhythm: Regular Heart sounds: Normal auscultation Murmur: No - Abdominal Inspection: Normal Distension: No distension Bowel sounds: Normal Tenderness: Nontender Organomegaly: No organomegaly - Back Back: Normal, Nontender - Extremities General upper extremity: Normal inspection, Nontender, Normal color, Normal ROM, Normal temperature General lower extremity: Normal inspection, Nontender, Normal color, Normal ROM, Normal temperature, Normal weight bearing. No: Kofi's sign - Neurological Neuro grossly intact: Yes Cognition: Normal Orientation: AAOx4 Zee Coma Scale Eye Opening: Spontaneous Zee Coma Scale Verbal: Oriented Zee Coma Scale Motor: Obeys Commands Zee Coma Scale Total: 15 Speech: Normal Motor strength normal: LUE, RUE, LLE, RLE Sensory: Normal - Psychological Associated symptoms: Normal affect, Normal mood - Skin Skin Temperature: Warm Skin Moisture: Dry Skin Color: Normal Course - Re-evaluation Re-evalutation: 06/26/18 20:42 Assessment consistent with an upper respiratory infection. Patient was treated with Claritin 10 mg, Sudafed 30 mg, Mucinex 6000 mg, and ibuprofen 600 mg, for cough cold congestion. After performing a Medical Screening Examination, I estimate there is LOW risk for ACUTE CORONARY SYNDROME, RESPIRATORY FAILURE, SEPSIS OR MENINGITIS, thus I consider the discharge disposition reasonable. I have reevaluated this patient multiple times and no significant life threatening changes are noted. The patient and I have discussed the diagnosis and risks, and we agree with discharging home with close follow-up. We also discussed returning to the Emergency Department immediately if new or worsening symptoms occur. We have discussed the symptoms which are most concerning (e.g., changing or worsening pain, trouble swallowing or breathing, neck stiffness, fever) that necessitate immediate return. - Vital Signs Vital signs: Temp Pulse Resp BP Pulse Ox 98.4 F 88 16 115/81 97 06/26/18 17:58 06/26/18 17:58 06/26/18 17:58 06/26/18 17:58 06/26/18 17:58 Discharge - Discharge Clinical Impression: URI (upper respiratory infection) Qualifiers: URI type: unspecified URI Qualified Code(s): J06.9 - Acute upper respiratory infection, unspecified Condition: Stable Disposition: HOME, SELF-CARE Instructions: Family Physicians / Practices Additional Instructions: UPPER RESPIRATORY ILLNESS: You have a viral infection of the respiratory passages -- a "cold." This common infection causes nasal congestion, drainage, and often sore throat and cough. It is highly contagious. The disease usually lasts about 10 to 14 days. There is no "cure" for the viral infection -- it must run its course. If there is a complication, such as bacterial infection in the nose, sinuses, middle ear, or bronchial tubes, antibiotics may be required. The antibiotics won't affect the virus. Drink plenty of fluids. A humidifier may help. An expectorant medication or decongestant may make you more comfortable. Use acetaminophen or ibuprofen for fever or aches. See the doctor if fever persists over two days, if there is any significant worsening of your symptoms, or if you simply fail to improve as expected. COUGH-SUPPRESSANT & EXPECTORANT MEDICATION: You are to use a cough medication as needed for relief of symptoms. This medicine is a combination of an expectorant (to make the mucous thinner and more easily "coughed up") and a cough suppressant (to reduce the frequency of coughing). The cough-suppressant medicine is related to narcotics. You may experience mild nausea and sleepiness. Some patients who are very sensitive to narcotics may have stomach pain from this medicine. Taking the medicine with food reduces these side effects. Do not drive or work with machinery until you know how this medicine affects you. The expectorant should have no side effects. Iodine-containing expectorants (such as organidin) should not be taken by persons with active thyroid disease unless approved by your doctor. Call the doctor if you develop shortness of breath, hives, rash, itching, lightheadedness, or severe nausea and vomiting. USE OF ACETAMINOPHEN (Tylenol): Acetaminophen may be taken for pain relief or fever control. It's much safer than aspirin, offering a wider range of "safe" dosages. It is safe during . Some brand names are Tylenol, Panadol, Datril, Anacin 3, Tempra, and Liquiprin. Acetaminophen can be repeated every four hours. The following are maximum recommended dosages: >89 pounds or adults 650 mg to 900 mg Acetaminophen can be repeated every four hours. Maximum dose not to exceed 4000 mg a day. You were treated with Claritin 10 mg Sudafed 30 mg Mucinex 600 mg and ibuprofen 600 mg in the emergency room for your cough cold congestion and body aches. These are all [id number] medications that you can get at the drugstore. Take Sudafed you will have to ask the pharmacist for. You have to sign for this. When you ask for the Sudafed as for as a little red tablets. Flonase will also help your symptoms. This is [id number]-qwlkglk follow the box instructions which is usually 1 spray each nostril twice a day. Chloraseptic spray will help with your sore throat. This is also mihz-vcf-[id number] follow the bottle instructions. Salt and soda solution gargles will also help your sore throat. Soda solution gargles 1 quart of water 1 tablespoon of salt 1 teaspoon of baking soda Mixed 3 ingredients together and boil for 1 minute Placed in a covered quart jar Use 1/2 ounce of cold solution to gargle 3 times a day SMOKING: If you smoke, you should stop smoking. The tar and chemicals in cigarette smoke are harmful. Smoking has been shown to cause: emphysema chronic bronchitis lung cancer mouth and throat cancer stomach and pancreas cancer premature aging defects In addition, smoking increases ear and lung infections in children of smokers. FOLLOW-UP CARE: If you have been referred to a physician for follow-up care, call the physicians office for an appointment as you were instructed or within the next two days. If you experience worsening or a significant change in your symptoms, notify the physician immediately or return to the Emergency Department at any time for re-evaluation. Forms: Smoking Cessation Education, Return to Work Referrals: KOFFI SUAREZ MD [Primary Care Provider] - Follow up as needed
== END 2018-06-26 20:30 | disposition home or self-care (01) ==
LOC: ER 17:30
DX: J06.9 Acute upper respiratory infection, unspecified (principal); R05 Cough; R09.89 Other specified symptoms and signs involving the circulatory and respiratory systems; J34.89 Other specified disorders of nose and nasal sinuses; J02.9 Acute pharyngitis, unspecified; R09.82 Postnasal drip; R68.83 Chills (without fever); F17.210 Nicotine dependence, cigarettes, uncomplicated; Z71.6 Tobacco abuse counseling
CPT/HCPCS: 99283; 99406

== ENCOUNTER 2018-12-12 20:07 | Emergency (ER) | payer SELFPAY ==
[2018-12-12 20:13] VITALS: BP 104/64
[2018-12-12] MEDS ORDERED: ACETAMINOPHEN 325 MG TABLET PO ONE (20:35)
--- NOTE | 2018-12-12 20:37 | ER Document Report ---
ED Medical Screen (RME) - General Chief Complaint: Rectal Abscess Stated Complaint: ABSCESS Time Seen by Provider: 12/12/18 20:32 Primary Care Provider: KOFFI SUAREZ MD [Primary Care Provider] - Follow up as needed Notes: Patient is a 23-year-old female presents to the emergency department for 2 abscesses. Patient states one is in her rectal region and another is in her vaginal region. Patient is describing a history of an abscess in her left armpit and also left groin. States she "took care of them myself." Denies any history of MRSA or antibiotic use. Patient's denying any dysuria or vaginal discharge. GENERAL: Alert, interacts well. Genitalia exam deferred until patient is placed in her room. Discussed use of pain medication at this time, patient is declining narcotics, states she "will be okay with Tylenol." I have greeted and performed a rapid initial assessment of this patient. A comprehensive ED assessment and evaluation of the patient, analysis of test results and completion of the medical decision making process will be conducted by additional ED providers. I have specifically instructed the patient or family members with the patient to immediately return to any nursing staff should anything change in the patient's condition or with their chief complaint. This medical record was dictated with voice recognizing software. There may be grammatical, syntax errors that are unintended. TRAVEL OUTSIDE OF THE [place] IN LAST 30 DAYS: No - Related Data Allergies/Adverse Reactions: No Known Allergies Allergy (Verified 11/05/17 07:54) Past Medical History - Social History Frequency of alcohol use: None Drug Abuse: None Pulmonary Medical History: Reports: Hx Bronchitis Denies: Hx Asthma, Hx Pneumonia Neurological Medical History: Reports: Hx Migraine Renal/ Medical History: Denies: Hx Peritoneal Dialysis - Immunizations Immunizations up to date: Yes Hx Diphtheria, Pertussis, Tetanus Vaccination: Yes Physical Exam - Vital signs Vitals: Temp Pulse Resp BP Pulse Ox 98.4 F 87 20 104/64 98 12/12/18 20:11 12/12/18 20:11 12/12/18 20:11 12/12/18 20:11 12/12/18 20:11 Course - Vital Signs Vital signs: Temp Pulse Resp BP Pulse Ox 98.4 F 87 20 104/64 98 12/12/18 20:11 12/12/18 20:11 12/12/18 20:11 12/12/18 20:11 12/12/18 20:11 Doctor's Discharge - Discharge Referrals: KOFFI SUAREZ MD [Primary Care Provider] - Follow up as needed
[2018-12-12] MEDS ORDERED: CLINDAMYCIN HCL 150 MG CAPSULE PO ONE (22:27)
[2018-12-12] MEDS ORDERED: LIDOCAINE 1%/EPINEPHRINE INJ 20 ML VIAL INJ ONE (22:27)
[2018-12-12] MEDS ORDERED: OXYCODONE-ACETAMINOPHEN 5-325 MG TABLET PO ONE (22:27)
--- NOTE | 2018-12-12 23:15 | ER Document Report ---
ED General - General Chief Complaint: Rectal Abscess Stated Complaint: ABSCESS Time Seen by Provider: 12/12/18 20:32 Primary Care Provider: KOFFI SUAREZ MD [Primary Care Provider] - Follow up as needed Notes: Patient is a pleasant 23-year-old female presents with complaint of perirectal gluteal abscess. Patient has never had these before. She said she first noticed it a few days ago but now has become painful to sit. No fevers. No vomiting. No abnormal bowel movements. No drainage. No other complaints at this time. Patient is not diabetic. TRAVEL OUTSIDE OF THE [place] IN LAST 30 DAYS: No - Related Data Allergies/Adverse Reactions: No Known Allergies Allergy (Verified 11/05/17 07:54) Past Medical History - Social History Smoking Status: Current Every Day Smoker Frequency of alcohol use: None Drug Abuse: None Family History: Reviewed & Not Pertinent, Other - asthma Patient has suicidal ideation: No Patient has homicidal ideation: No Pulmonary Medical History: Reports: Hx Bronchitis Denies: Hx Asthma, Hx Pneumonia Neurological Medical History: Reports: Hx Migraine Renal/ Medical History: Denies: Hx Peritoneal Dialysis - Immunizations Immunizations up to date: Yes Hx Diphtheria, Pertussis, Tetanus Vaccination: Yes Review of Systems - Review of Systems Notes: My Normal Review Basic REVIEW OF SYSTEMS: CONSTITUTIONAL : Denies fever, chills, or sweats. Denies recent illness. GASTROINTESTINAL: Denies abdominal pain. Denies nausea, vomiting, or diarrhea. FEMALE GENITOURINARY: Denies vaginal bleeding, abnormal or irregular periods. MUSCULOSKELETAL: Denies neck or back pain or joint pain or swelling. SKIN: Rectal abscess NEUROLOGICAL: Denies altered mental status or loss of consciousness. ALL OTHER SYSTEMS REVIEWED AND NEGATIVE. Physical Exam - Vital signs Vitals: Temp Pulse Resp BP Pulse Ox 98.4 F 87 20 104/64 98 12/12/18 20:11 12/12/18 20:11 12/12/18 20:11 12/12/18 20:11 12/12/18 20:11 - Notes Notes: General Appearance: Well nourished, alert, cooperative, no acute distress, mild obvious discomfort. Vitals: reviewed, See vital signs table. Lungs: No wheezing, No rales, No rhonci, No accessory muscle use, good air exchange bilaterally. Heart: Normal rate, Regular rythm, No murmur, no rub Abdomen: Normal BS, soft, No rigidity, No abdominal tenderness, No guarding, no rebound Rectal exam: Patient has a perirectal abscess on the left side. Area of fluctuance approximately 3 cm. Abscess does not seem to extend into the rectal vault. Abscess seems to extend more into the left gluteal region. Extremities: good pulses in all extremities Skin: warm, dry, appropriate color, no rash Neuro: speech clear, oriented x 3, normal affect, responds appropriately to questions. Course - Re-evaluation Re-evalutation: 12/13/18 00:55 Abscess was anesthetized with lidocaine. It was then incised and drained. Patient had large amount of purulent material expressed from abscess. Wound was flushed with saline and then packed with iodoform gauze. Patient encouraged to return in 2 days for reevaluation. There is no spreading cellulitis. Patient is not septic or toxic appearing. She is well-appearing. Patient encouraged to return to the ER immediately if she has recurrent swelling, increasing pain, fevers, or she feels unwell. Patient agrees with plan and will be discharged home. Dictation of this chart was performed using voice recognition software; therefore, there may be some unintended grammatical errors. - Vital Signs Vital signs: Temp Pulse Resp BP Pulse Ox 100.8 F H 87 20 104/64 98 12/13/18 00:36 12/12/18 20:11 12/12/18 20:11 12/12/18 20:11 12/12/18 20:11 Procedures - Incision and Drainage Rectal Type: Simple Anesthetic type: 1% Lidocaine w/epi mL's of anesthetic: 4 Blade size: 11 I&D procedure: Betadine prep applied Incision Method: Incision made by scalpel Amount/type of drainage: 10mls of purulent drainage Notes: 12/12/18 23:23 Iodoform packing applied to wound after wound was irrigated with saline. Discharge - Discharge Clinical Impression: Perirectal abscess Condition: Good Disposition: HOME, SELF-CARE Additional Instructions: I did place some packing where I incised and drained your abscess. Please return to the ER in 2 days so we can reevaluate the infected area and potentially remove the packing at that time. Every time you have a bowel movement please make sure that you get in the shower and gently clean the area with soap and water and then pat the area dry. Then place clean gauze over the area. Please return to ER immediately if you have fevers, increasing swelling, worsening pain, or if you have any concerns that you are worsening in any way. Please take antibiotic as prescribed. Prescriptions: Clindamycin HCl [Cleocin 150 mg Capsule] 300 mg PO Q6 #56 capsule Referrals: KOFFI SUAREZ MD [Primary Care Provider] - Follow up as needed
== END 2018-12-13 00:45 | disposition home or self-care (01) ==
LOC: ER 20:07
DX: K61.1 Rectal abscess (principal); F17.200 Nicotine dependence, unspecified, uncomplicated
CPT/HCPCS: 99283; 46040; A6266; J3490

== ENCOUNTER 2018-12-29 17:54 | Emergency (ER) | payer MEDICAID ==
--- NOTE | 2018-12-29 18:18 | ER Document Report ---
ED Medical Screen (RME) - General Chief Complaint: Vag Bleeding, +preg <12wks Stated Complaint: BLEEDING WITH Time Seen by Provider: 12/29/18 18:17 Primary Care Provider: KOFFI SUAREZ MD [Primary Care Provider] - Follow up as needed Mode of Arrival: Ambulatory Information source: Patient Notes: Patient presents 8 weeks . Patient reports vaginal bleeding with clots that started today. Patient denies any pelvic pain, urinary symptoms or fever. Review of patient's previous delivery, patient's blood type O+ I have greeted and performed a rapid initial assessment of this patient. A comprehensive ED assessment and evaluation of the patient, analysis of test results and completion of the medical decision making process will be conducted by additional ED providers. TRAVEL OUTSIDE OF THE [place] IN LAST 30 DAYS: No - Related Data Allergies/Adverse Reactions: No Known Allergies Allergy (Verified 12/29/18 18:04) Past Medical History Pulmonary Medical History: Reports: Hx Bronchitis Denies: Hx Asthma, Hx Pneumonia Neurological Medical History: Reports: Hx Migraine Renal/ Medical History: Denies: Hx Peritoneal Dialysis - Immunizations Immunizations up to date: Yes Hx Diphtheria, Pertussis, Tetanus Vaccination: Yes Physical Exam - Vital signs Vitals: Temp Pulse Resp BP Pulse Ox 99.0 F 68 16 111/67 98 12/29/18 18:13 12/29/18 18:13 12/29/18 18:13 12/29/18 18:13 12/29/18 18:13 - General General appearance: Appears well, Alert In distress: None - Abdominal Tenderness: Nontender Course - Vital Signs Vital signs: Temp Pulse Resp BP Pulse Ox 99.0 F 68 16 111/67 98 12/29/18 18:13 12/29/18 18:13 12/29/18 18:13 12/29/18 18:13 12/29/18 18:13 Doctor's Discharge - Discharge Referrals: KOFFI SUAREZ MD [Primary Care Provider] - Follow up as needed
[2018-12-29 18:55] LABS: ABSOLUTE LYMPHOCYTES (AUTO) 2.1 10^3/uL (0.5-4.7); ABSOLUTE MONOCYTES (AUTO) 0.8 10^3/uL (0.1-1.4); ABSOLUTE NEUT (AUTO) 6.9 10^3/uL (1.7-8.2); BASOPHILS % (AUTO) 0.4 % (0-2); EOSINOPHILS % (AUTO) 0.3 % (0-6); HEMATOCRIT 33.1 % (36.0-47.0); LYMPHOCYTES % (AUTO) 21.5 % (13-45); MEAN CORPUSCULAR HGB CONC 33.2 g/dL (32.0-36.0); MEAN CORPUSCULAR VOLUME 87 fl (80-97); MONOCYTES % (AUTO) 8.1 % (3-13); PLATELET COUNT 221 10^3/uL (150-450); RED BLOOD COUNT 3.79 10^6/uL (3.72-5.28); RED CELL DISTRIBUTION WIDTH 17.6 % (11.5-14.0); SEGMENTED NEUTROPHILS % (AUTO) 69.7 % (42-78); TOTAL CELLS COUNTED % (AUTO) 100 %; WHITE BLOOD COUNT 9.9 10^3/uL (4.0-10.5)
[2018-12-29 18:56] LABS: APPEARANCE,URINE CLOUDY; BILIRUBIN,URINE NEGATIVE (NEGATIVE); COLOR,URINE YELLOW; GLUCOSE, URINE NEGATIVE (NEGATIVE); KETONES,URINE NEGATIVE (NEGATIVE); LEUKOCYTE ESTERASE,URINE SMALL (NEGATIVE); NITRITE,URINE NEGATIVE (NEGATIVE); PROTEIN,URINE 30 mg/dL (NEGATIVE); URINE SPECIFIC GRAVITY 1.017
--- NOTE | 2018-12-29 19:57 | RADIOLOGY REPORT (SQ) ---
EXAM DESCRIPTION: U/S OB TRANSVAGINAL W/O DOP COMPLETED DATE/TIME: 12/29/2018 7:45 pm REASON FOR STUDY: vag bleeding COMPARISON: None. TECHNIQUE: Transvaginal static and realtime grayscale images acquired of the pelvis. Additional heather cted spectral and color Doppler images recorded. All images stored on PACs. bHCG: Pending. CLINICAL DATES: 8 weeks 4 days LIMITATIONS: None. FINDINGS: FETUS: Single Living intrauterine . ULTRASOUND EGA: 8 weeks 4 days ULTRASOUND LAMIN: 08/06/2019 EFW: Not applicable less than 20 weeks. CRL: 2.0 cm FHR: 169 beats per minute. SURVEY: No visualized anomalies. AMNIOTIC FLUID: Adequate amount. PLACENTA: Not yet developed due to early gestation. SUBCHORIONIC BLEED: Yes SIZE OF BLEED: 2.4 x 1.5 x 0.7 cm UTERUS: No masses. No anomalies. CERVICAL LENGTH: 2.4 cm Closed. RIGHT ADNEXA: Ovary not identified due to poor acoustical window. No adnexal free fluid. No adnexal masses. LEFT ADNEXA: Normal ovary with normal vascular flow. No adnexal free fluid. No adnexal masses. FREE FLUID: None. OTHER: No other significant finding. IMPRESSION: LIVING INTRAUTERINE . EGA 8 weeks 4 days Trimester of : First - 0 to 13 weeks. TECHNICAL DOCUMENTATION: JOB ID: [id number] 2010 [employer]- All Rights Reserved rev Reading location - IP/workstation name: [email or web address]
--- NOTE | 2018-12-29 20:49 | ER Document Report ---
ED General - General Chief Complaint: Vag Bleeding, +preg <12wks Stated Complaint: BLEEDING WITH Time Seen by Provider: 12/29/18 18:17 Primary Care Provider: KOFFI SUAREZ MD [Primary Care Provider] - Follow up as needed Mode of Arrival: Ambulatory Notes: Patient is a 23 year old female, G2, P1, approximately 8 weeks gravid that presents to the emergency department for chief complaint of vaginal bleeding. Patient states around 5 PM this evening she started having vaginal bleeding with a few clots that she passed. She denies having any pain associated with this or cramping. Denies any nausea, vomiting fevers, chills, night sweats, dysuria or hematuria. She was concerned she may be having a miscarriage so she came to the emergency department. Her first day of her last menstrual period was October 30. Denies any other complaints at this time, overall she states she is feeling well. She has not had any further bleeding since being in the emergency department. Past Medical History: Denies chronic medical conditions Past Surgical History: Denies surgical history Social History: Denies tobacco, alcohol or drug use. Family History: Reviewed and noncontributory for presenting illness Allergies: Reviewed, see documented allergy list. REVIEW OF SYSTEMS: Other than noted above, the 12 point review of systems was reviewed with the patient and were negative, all pertinent findings are included in the HPI. PHYSICAL EXAMINATION: Vital signs reviewed, nursing noted reviewed. GENERAL: Well-appearing, well-nourished and in no acute distress. HEAD: Atraumatic, normocephalic. EYES: Eyes appear normal, extraocular movements intact, sclera anicteric, conjunctiva are normal. ENT: nares patent, oropharynx clear without exudates. Moist mucous membranes. NECK: Normal range of motion, supple without lymphadenopathy LUNGS: Breath sounds clear to auscultation bilaterally and equal. No wheezes rales or rhonchi. HEART: Regular rate and rhythm without murmurs ABDOMEN: Soft, nontender, normoactive bowel sounds. No rebound, guarding, or rigidity. No masses appreciated. EXTREMITIES: Nontender, good range of motion, no pitting or edema. NEUROLOGICAL: No focal neurological deficits. Moves all extremities spontaneously Motor and sensory grossly intact on exam. PSYCH: Normal mood, normal affect. SKIN: Warm, Dry, normal turgor, no rashes or lesions noted on exposed skin TRAVEL OUTSIDE OF THE [place] IN LAST 30 DAYS: No - Related Data Allergies/Adverse Reactions: No Known Allergies Allergy (Verified 12/29/18 18:04) Past Medical History - General Information source: Patient - Social History Smoking Status: Never Smoker Family History: Reviewed & Not Pertinent, Other - asthma Patient has suicidal ideation: No Patient has homicidal ideation: No Pulmonary Medical History: Reports: Hx Bronchitis Denies: Hx Asthma, Hx Pneumonia Neurological Medical History: Reports: Hx Migraine Renal/ Medical History: Denies: Hx Peritoneal Dialysis - Immunizations Immunizations up to date: Yes Hx Diphtheria, Pertussis, Tetanus Vaccination: Yes Physical Exam - Vital signs Vitals: Temp Pulse Resp BP Pulse Ox 99.0 F 68 16 111/67 98 12/29/18 18:13 12/29/18 18:13 12/29/18 18:13 12/29/18 18:13 12/29/18 18:13 Course - Re-evaluation Re-evalutation: Patient seen and examined vital signs reviewed. Laboratory data and/or imaging were ordered as appropriate for the patient's presenting symptoms and complaint, with consideration of any critical or life threatening conditions that may be associated with their obtained history and exam as noted above. Results were reviewed when available and demonstrated unremarkable blood work, hCG was within range for patient's current state of , and ultrasound de monstrated single live intrauterine . The patient was re-evaluated and was stable, no complaints Evaluation was most consistent with vaginal bleeding in , advised follow-up with SUEDING MACHINE TENDER Results were discussed with the patient at this point, after careful consideration I feel that that patient can be discharged from the emergency department, the patient was educated treatments and reasons to return to the emergency department based on their presumed diagnosis as noted above, they were advised to followup with a primary care physician in 2-3 days. Patient was agreeable to plan of care. *Note is created using voice recognition software and may contain spelling, syntax or grammatical errors. Laboratory 12/29/18 12/29/18 12/29/18 18:40 18:40 18:40 WBC 9.9 RBC 3.79 Hgb 11.0 L Hct 33.1 L MCV 87 MCH 29.0 MCHC 33.2 RDW 17.6 H Plt Count 221 Seg Neutrophils % 69.7 Lymphocytes % 21.5 Monocytes % 8.1 Eosinophils % 0.3 Basophils % 0.4 Absolute Neutrophils 6.9 Absolute Lymphocytes 2.1 Absolute Monocytes 0.8 Absolute Eosinophils 0.0 Absolute Basophils 0.0 Beta HCG, Quant 870654.00 H Total Beta HCG POSITIVE Urine Color YELLOW Urine Appearance CLOUDY Urine pH 9.0 Ur Specific Henderson 1.017 Urine Protein 30 H Urine Glucose (UA) NEGATIVE Urine Ketones NEGATIVE Urine Blood LARGE H Urine Nitrite NEGATIVE Urine Bilirubin NEGATIVE Urine Urobilinogen 2.0 H Ur Leukocyte Esterase SMALL H Urine WBC (Auto) 10 Urine RBC (Auto) >182 Squamous Epi Cells Auto 6 Urine Mucus (Auto) RARE Urine Ascorbic Acid NEGATIVE Obstetrics Ultrasound 12/29/18 18:17 IMPRESSION: LIVING INTRAUTERINE . EGA 8 weeks 4 days Trimester of : First - 0 to 13 weeks. - Vital Signs Vital signs: Temp Pulse Resp BP Pulse Ox 99.0 F 68 16 111/67 98 12/29/18 18:13 12/29/18 18:13 12/29/18 18:13 12/29/18 18:13 12/29/18 18:13 - Laboratory Result Diagrams: 12/29/18 18:40 Laboratory results interpreted by me: 12/29/18 12/29/18 12/29/18 18:40 18:40 18:40 Hgb 11.0 L Hct 33.1 L RDW 17.6 H Beta HCG, Quant 166696.00 H Urine Protein 30 H Urine Blood LARGE H Urine Urobilinogen 2.0 H Ur Leukocyte Esterase SMALL H Discharge - Discharge Clinical Impression: Vaginal bleeding in Condition: Stable Disposition: HOME, SELF-CARE Instructions: Bleeding During Early ([facility]) Additional Instructions: Please monitor for any worsening bleeding or passing clots, if you develop severe pelvic cramping, and are passing more clots, do not hesitate to return to the emergency department or at least call the SUEDING MACHINE TENDER, I also recommend that she return to the emergency department immediately if you are passing enough blood that you are going through more than 1 sanitary pad per hour. Referrals: [facility] [Provider Group] - Follow up in 3-5 days
[2018-12-29 21:08] VITALS: BP 126/82
== END 2018-12-29 21:09 | disposition home or self-care (01) ==
LOC: ER 17:54
DX: O46.91 Antepartum hemorrhage, unspecified, first trimester (principal); O99.511 Diseases of the respiratory system complicating pregnancy, first trimester; J45.909 Unspecified asthma, uncomplicated; Z3A.08 8 weeks gestation of pregnancy
CPT/HCPCS: 36415; 76817; 81001; 84702; 85025; 99284

== ENCOUNTER 2019-02-13 08:55 | Emergency (ER) | payer MEDICAID ==
--- NOTE | 2019-02-13 09:17 | ER Document Report ---
ED Medical Screen (RME) - General Chief Complaint: OB Problem (<20wks) Stated Complaint: BLEEDING WITH Time Seen by Provider: 02/13/19 09:16 Primary Care Provider: KOFFI SUAREZ MD [Primary Care Provider] - Follow up as needed Mode of Arrival: Ambulatory Information source: Patient Notes: 22-year-old female presented to ED for vaginal bleeding. She states she is bright red blood no clots no tissues. She is 15 weeks 2 para 1. Patient denies any pain or cramping. She is alert oriented respirations regular and unlabored speaking in full sentences her blood type is O+. I have greeted and performed a rapid initial assessment of this patient. A comprehensive ED assessment and evaluation of the patient, analysis of test results and completion of medical decision making process will be conducted by an additional ED providers. TRAVEL OUTSIDE OF THE [place] IN LAST 30 DAYS: No - Related Data Allergies/Adverse Reactions: No Known Allergies Allergy (Verified 02/13/19 08:55) Past Medical History Pulmonary Medical History: Reports: Hx Bronchitis Denies: Hx Asthma, Hx Pneumonia Neurological Medical History: Reports: Hx Migraine Renal/ Medical History: Denies: Hx Peritoneal Dialysis - Immunizations Immunizations up to date: Yes Hx Diphtheria, Pertussis, Tetanus Vaccination: Yes Physical Exam - Vital signs Vitals: Temp Pulse Resp BP Pulse Ox 98.2 F 87 20 113/63 100 02/13/19 09:00 02/13/19 09:00 02/13/19 09:00 02/13/19 09:00 02/13/19 09:00 Course - Vital Signs Vital signs: Temp Pulse Resp BP Pulse Ox 98.2 F 87 20 113/63 100 02/13/19 09:00 02/13/19 09:00 02/13/19 09:00 02/13/19 09:00 02/13/19 09:00 Doctor's Discharge - Discharge Referrals: KOFFI SUAREZ MD [Primary Care Provider] - Follow up as needed
--- NOTE | 2019-02-13 10:14 | RADIOLOGY REPORT (SQ) ---
EXAM DESCRIPTION: U/S OB 14+ TRNABD 1GES W/O DOP COMPLETED DATE/TIME: 02/13/2019 9:47 am REASON FOR STUDY: vaginal bleeding COMPARISON: None. TECHNIQUE: Static and Dynamic grayscale imaging performed of gravid uterus using transabdominal appr oach. Additional selected color Doppler and spectral images recorded. All stored on PACS. LIMITATIONS: None. FINDINGS: FETUSES SEEN:1 EGA: 15 weeks 1 day Calculated using BPD,FL,HC,AC documented on images. No discrepancy with clinical dates. LAMIN: 08/06/2019 EFW: Not calculated grams PERCENTILE: Not calculated ANT: 5.7 PLACENTA: Anterior grade 1. PRESENTATION: Cephalic. ANATOMY: Not evaluated. MATERNAL ADNEXA: Maternal ovaries not visualized. CERVICAL LENGTH: 3.0 cm. Closed. OTHER: No other significant finding. IMPRESSION: LIVING INTRAUTERINE . ESTIMATED GESTATIONAL AGE 15 weeks 1 day. No abruption. Trimester of : Second trimester - 13 weeks 1 day to 27 weeks 6 days. TECHNICAL DOCUMENTATION: JOB ID: [id number] [employer]- All Rights Reserved Reading location - IP/workstation name: [email or web address]
[2019-02-13 10:22] LABS: APPEARANCE,URINE CLOUDY; BILIRUBIN,URINE NEGATIVE (NEGATIVE); COLOR,URINE RED; GLUCOSE, URINE NEGATIVE (NEGATIVE); KETONES,URINE NEGATIVE (NEGATIVE); LEUKOCYTE ESTERASE,URINE SMALL (NEGATIVE); NITRITE,URINE NEGATIVE (NEGATIVE); PROTEIN,URINE 100 mg/dL (NEGATIVE); URINE SPECIFIC GRAVITY 1.012; UROBILINOGEN,URINE NEGATIVE mg/dL (<2.0)
--- NOTE | 2019-02-13 10:26 | ER Document Report ---
ED GI/ - General Chief Complaint: OB Problem (<20wks) Stated Complaint: BLEEDING WITH Time Seen by Provider: 02/13/19 09:16 Primary Care Provider: KOFFI SUAREZ MD [Primary Care Provider] - Follow up as needed Mode of Arrival: Ambulatory Information source: Patient Notes: HPI: 23-year-old female -0-0-1 at 15 weeks by dates who presents with some painless vaginal bleeding. No fevers, lightheadedness, dysuria, or vaginal discharge. No flank pain or contraction-like feelings. Patient is O+ from a previous at this facility. ROS: See HPI All other review of systems reviewed and otherwise negative Reviewed vital signs and nursing note as charted by RN. PHYSICAL EXAM: CONSTITUTIONAL: Alert and oriented and responds appropriately to questions. Well-appearing; well-nourished HEAD: Normocephalic; atraumatic EYES: Sclerae not pale CARD: Regular rate and rhythm; no murmurs; symmetric distal pulses RESP: Normal chest excursion without splinting or tachypnea; breath sounds clear and equal bilaterally; no wheezes, no rhonchi, no rales ABD/GI: Normal bowel sounds; non-distended; soft, to all 4 quadrants including the suprapubic region GI/: With sound truck operator present I performed a pelvic examination showing no obvious external or internal lesions. Minimal blood in the vaginal vault. No tenderness to cervical manipulation or bilateral pelvic regions. Osseous closed BACK: The back appears normal and is non-tender to palpation EXT: Normal ROM in all joints; non-tender to palpation; no edema SKIN: No acute lesions noted NEURO: CN 2-12 intact; 5/5 bilateral upper and lower extremity strength with sensation intact to light touch PSYCH: The patient's mood and manner are appropriate. Grooming and personal hygiene are appropriate. TRAVEL OUTSIDE OF THE [place] IN LAST 30 DAYS: No - Related Data Allergies/Adverse Reactions: No Known Allergies Allergy (Verified 02/13/19 08:55) Past Medical History - General Information source: Patient - Social History Smoking Status: Former Smoker Chew tobacco use (# tins/day): No Frequency of alcohol use: None Drug Abuse: None Family History: Reviewed & Not Pertinent, Other - asthma Patient has suicidal ideation: No Patient has homicidal ideation: No Pulmonary Medical History: Reports: Hx Bronchitis Denies: Hx Asthma, Hx Pneumonia Neurological Medical History: Reports: Hx Migraine Renal/ Medical History: Denies: Hx Peritoneal Dialysis - Immunizations Immunizations up to date: Yes Hx Diphtheria, Pertussis, Tetanus Vaccination: Yes Physical Exam - Vital signs Vitals: Temp Pulse Resp BP Pulse Ox 98.2 F 87 20 113/63 100 02/13/19 09:00 02/13/19 09:00 02/13/19 09:00 02/13/19 09:00 02/13/19 09:00 Course - Re-evaluation Re-evalutation: Given the above history and physical, we will obtain a CBC, quantitative hCG, and perform a transvaginal ultrasound. 02/13/19 10:26 Transvaginal ultrasound as recorded. 02/13/19 11:02 Labs and ultrasound as recorded. Urine analysis shows blood with less than 10 white blood cells with 10 squamous cells. Patient has no dysuria or pain. Urine culture has been sent. Ultrasound as recorded. Given the above history and physical, patient will be discharged home with strict return precautions and follow-up with the COMMISSARY SUPERINTENDENT. - Vital Signs Vital signs: Temp Pulse Resp BP Pulse Ox 98.2 F 87 20 113/63 100 02/13/19 09:00 02/13/19 09:00 02/13/19 09:00 02/13/19 09:00 02/13/19 09:00 - Laboratory Result Diagrams: 02/13/19 10:00 02/13/19 10:00 Laboratory results interpreted by me: 02/13/19 02/13/19 02/13/19 09:53 10:00 10:00 RBC 3.31 L Hgb 9.9 L Hct 29.1 L RDW 18.0 H Creatinine 0.46 L Urine Protein 100 H Urine Blood LARGE H Ur Leukocyte Esterase SMALL H Discharge - Discharge Clinical Impression: Miscarriage, threatened, early Condition: Good Disposition: HOME, SELF-CARE Additional Instructions: Come back immediately for any increased bleeding, lightheadedness, fevers, pain, or any other acute problems. Please make sure that you follow-up regarding the urine culture results as we have discussed. Please make sure that you follow-up with the primary COMMISSARY SUPERINTENDENT for reassessment. Referrals: KOFFI SUAREZ MD [Primary Care Provider] - Follow up as needed
[2019-02-13 10:29] LABS: ABSOLUTE EOSINOPHILS # (AUTO) 0.1 10^3/uL (0.0-0.6); ABSOLUTE LYMPHOCYTES (AUTO) 1.6 10^3/uL (0.5-4.7); ABSOLUTE MONOCYTES (AUTO) 0.7 10^3/uL (0.1-1.4); ABSOLUTE NEUT (AUTO) 7.3 10^3/uL (1.7-8.2); BASOPHILS % (AUTO) 0.3 % (0-2); EOSINOPHILS % (AUTO) 0.6 % (0-6); HEMATOCRIT 29.1 % (36.0-47.0); HEMOGLOBIN 9.9 g/dL (12.0-15.5); LYMPHOCYTES % (AUTO) 16.8 % (13-45); MEAN CORPUSCULAR HEMOGLOBIN 29.9 pg (27.0-33.4); MEAN CORPUSCULAR VOLUME 88 fl (80-97); MONOCYTES % (AUTO) 7.3 % (3-13); PLATELET COUNT 200 10^3/uL (150-450); RED BLOOD COUNT 3.31 10^6/uL (3.72-5.28); TOTAL CELLS COUNTED % (AUTO) 100 %; WHITE BLOOD COUNT 9.7 10^3/uL (4.0-10.5)
[2019-02-13 10:37] LABS: BACTERIA (WET MOUNT) 3+ BACTERIA SEEN; EPITHELIALS (WET MOUNT) 3+ EPITHELIALS SEEN; RBCS (WET MOUNT) 4+ RBCS SEEN; T.VAGINALIS (WET MOUNT) NO TRICHOMONAS SEEN; WBCS (WET MOUNT) 3+ WBCS SEEN; YEAST (WET MOUNT) NO YEAST SEEN
[2019-02-13 10:40] LABS: ALBUMIN 3.7 g/dL (3.5-5.0); ALKALINE PHOSPHATASE 44 U/L (38-126); ANION GAP 7 (5-19); ASPARTATE AMINO TRANSFERASE 22 U/L (14-36); BILIRUBIN,DIRECT 0.2 mg/dL (0.0-0.4); BILIRUBIN,TOTAL 0.4 mg/dL (0.2-1.3); BLOOD UREA NITROGEN 7 mg/dL (7-20); CALCIUM 8.9 mg/dL (8.4-10.2); CARBON DIOXIDE 25 mmol/L (22-30); CHLORIDE 106 mmol/L (98-107); GLUCOSE 81 mg/dL (75-110); TOTAL PROTEIN 6.9 g/dL (6.3-8.2)
[2019-02-13 11:13] VITALS: BP 104/57
[2019-02-13 12:07] LABS: CHLAM PCR NOT DETECTED (NOT DETECT)
== END 2019-02-13 11:12 | disposition home or self-care (01) ==
LOC: ER 08:55
DX: O20.0 Threatened abortion (principal); Z3A.15 15 weeks gestation of pregnancy
CPT/HCPCS: 36415; 76805; 80053; 81001; 84702; 85025; 87086; 87210; 87491; 87591; 99284

== ENCOUNTER 2019-06-20 20:29 | Emergency (ER) | payer MEDICAID ==
--- NOTE | 2019-06-20 20:36 | ER Document Report ---
ED Medical Screen (RME) - General Chief Complaint: Skin Sore(s) Stated Complaint: SKIN ISSUE Time Seen by Provider: 06/20/19 20:34 Primary Care Provider: KOFFI SUAREZ MD [Primary Care Provider] - Follow up as needed TRAVEL OUTSIDE OF THE [place] IN LAST 30 DAYS: No - HPI Notes: 06/20/19 20:36 Patient is a 24-year-old female presents complaining of possible abscess to her left lower buttock area that is been present for the past couple days. Patient states that is fairly large and may need cut open as she has needed I&D's performed in the past. She is currently 33 weeks , but does not have any pelvic pain or vaginal bleeding. No low back pain. No fever. I have treated and performed a rapid initial assessment of this patient. A comprehensive ED assessment and evaluation of the patient, analysis of test results and completion of medical decision making process will be conducted by additional ED providers. PHYSICAL EXAMINATION: GENERAL: Well-appearing, well-nourished and in no acute distress. A&Ox4. Answers questions appropriately. - Related Data Allergies/Adverse Reactions: No Known Allergies Allergy (Verified 02/13/19 08:55) Past Medical History Pulmonary Medical History: Reports: Hx Bronchitis Denies: Hx Asthma, Hx Pneumonia Neurological Medical History: Reports: Hx Migraine Renal/ Medical History: Denies: Hx Peritoneal Dialysis - Immunizations Immunizations up to date: Yes Hx Diphtheria, Pertussis, Tetanus Vaccination: Yes Physical Exam - Vital signs Vitals: Temp Pulse Resp BP Pulse Ox 97.7 F 87 18 127/82 H 100 06/20/19 20:34 06/20/19 20:34 06/20/19 20:34 06/20/19 20:34 06/20/19 20:34 Course - Vital Signs Vital signs: Temp Pulse Resp BP Pulse Ox 97.7 F 87 18 127/82 H 100 06/20/19 20:34 06/20/19 20:34 06/20/19 20:34 06/20/19 20:34 06/20/19 20:34 Doctor's Discharge - Discharge Referrals: KOFFI SUAREZ MD [Primary Care Provider] - Follow up as needed
[2019-06-21] MEDS ORDERED: LIDOCAINE 1% INJ-PF (10 MG/ML) 30 ML SDV ONE (00:45)
[2019-06-21] MEDS ORDERED: CLINDAMYCIN HCL 150 MG CAPSULE PO ONE (01:02)
--- NOTE | 2019-06-21 01:12 | ER Document Report ---
ED Skin Rash/Insect Bite/Abscs - General Chief Complaint: Skin Problem Stated Complaint: SKIN ISSUE Time Seen by Provider: 06/20/19 20:34 Primary Care Provider: KOFFI SUAREZ MD [Primary Care Provider] - Follow up as needed Mode of Arrival: Ambulatory Information source: Patient Notes: 24-year-old female presented to ED for complaint of abscess to the left buttoc ks. She states she is 33 weeks and this abscess became much worse in the last couple days. She is 2 para 1 with an [id number]. She does not smoke drink or use any drugs. She states his pain become so bad that she came to the emergency room to have a I&D done of the abscess. She states she does have a [employer]KE [employer] appointment on 21 June. TRAVEL OUTSIDE OF THE [place] IN LAST 30 DAYS: No - HPI Patient complains to provider of: Tender/swollen area Onset: Other Onset/Duration: Gradual - Couple days Quality of pain: Sharp, Throbbing Severity: Severe Pain Level: 5 Skin Character: Abscess Quality of rash: Painful Identify cause: No Exacerbated by: Sitting Relieved by: Denies Similar symptoms previously: Yes Recently seen / treated by doctor: Yes - Related Data Allergies/Adverse Reactions: No Known Allergies Allergy (Verified 02/13/19 08:55) Past Medical History - General Information source: Patient - Social History Smoking Status: Former Smoker Frequency of alcohol use: None Drug Abuse: None Lives with: Spouse/Significant other Family History: Reviewed & Not Pertinent, Other - asthma Patient has suicidal ideation: No Patient has homicidal ideation: No - Past Medical History Cardiac Medical History: Reports: None Pulmonary Medical History: Reports: Hx Bronchitis EENT Medical History: Reports: None Neurological Medical History: Reports: Hx Migraine Endocrine Medical History: Reports: None Renal/ Medical History: Reports: None. Denies: Hx Peritoneal Dialysis Malignancy Medical History: Reports: None GI Medical History: Reports: None Musculoskeletal Medical History: Reports None Skin Medical History: Reports None Psychiatric Medical History: Reports: None Traumatic Medical History: Reports: None Infectious Medical History: Reports: None Surgical Hx: Negative Past Surgical History: Reports: None - Immunizations Immunizations up to date: Yes Hx Diphtheria, Pertussis, Tetanus Vaccination: Yes Review of Systems - Review of Systems Constitutional: No symptoms reported EENT: No symptoms reported Cardiovascular: No symptoms reported Respiratory: No symptoms reported Gastrointestinal: No symptoms reported Genitourinary: No symptoms reported Female Genitourinary: Musculoskeletal: No symptoms reported Skin: Other - Left buttocks abscess Hematologic/Lymphatic: No symptoms reported Neurological/Psychological: No symptoms reported -: Yes All other systems reviewed and negative Physical Exam - Vital signs Vitals: Temp Pulse Resp BP Pulse Ox 97.7 F 87 18 127/82 H 100 06/20/19 20:34 06/20/19 20:34 06/20/19 20:34 06/20/19 20:34 06/20/19 20:34 Interpretation: Normal - General General appearance: Appears well, Alert - HEENT Head: Normocephalic, Atraumatic Eyes: Normal Pupils: PERRL - Respiratory Respiratory status: No respiratory distress Chest status: Nontender Breath sounds: Normal Chest palpation: Normal - Cardiovascular Rhythm: Regular Heart sounds: Normal auscultation Murmur: No - Abdominal Inspection: Gravid female Distension: No distension Bowel sounds: Normal Tenderness: Nontender Organomegaly: No organomegaly - Back Back: Normal, Nontender - Extremities General upper extremity: Normal inspection, Nontender, Normal color, Normal ROM, Normal temperature General lower extremity: Normal inspection, Nontender, Normal color, Normal ROM, Normal temperature, Normal weight bearing. No: Kofi's sign - Neurological Neuro grossly intact: Yes Cognition: Normal Orientation: AAOx4 Zee Coma Scale Eye Opening: Spontaneous Zee Coma Scale Verbal: Oriented Williams Coma Scale Motor: Obeys Commands Zee Coma Scale Total: 15 Speech: Normal Motor strength normal: LUE, RUE, LLE, RLE Sensory: Normal - Psychological Associated symptoms: Normal affect, Normal mood - Skin Skin Temperature: Warm Skin Moisture: Dry Skin Color: Normal Skin irregularity: Abscess - Left buttocks Location of irregularity: Other - Left buttocks Irregularity with: Swelling, Tenderness, Warmth Course - Re-evaluation Re-evalutation: 06/21/19 07:25 Very large abscess to the left buttocks. Patient is 33 weeks . I did have Dr. Limon come over and examined the abscess due to the size of the abscess and amount of drainage with her being 33 weeks . He did recommend patient be placed on clindamycin and to have the abscess packed and be reexamined. Patient states she does have an FISH [employer]KE [employer] appointment in the afternoon. She states she would also return to the ED tomorrow for the abscess to be reexamined and the packing removed. Patient was given clindamycin and a prescription for clindamycin. - Vital Signs Vital signs: Temp Pulse Resp BP Pulse Ox 98.2 F 79 20 129/86 H 99 06/21/19 01:14 06/21/19 01:14 06/21/19 01:14 06/21/19 01:14 06/21/19 01:14 Procedures - Incision and Drainage Left Buttock Time completed: :00 Type: Complex Anesthetic type: 1% Lidocaine mL's of anesthetic: 10 Blade size: 11 I&D procedure: Shurclens applied Incision Method: Incision made by scalpel Amount/type of drainage: Large amount of purulent drainage Discharge - Discharge Clinical Impression: Abscess of buttock, left Condition: Stable Disposition: HOME, SELF-CARE Additional Instructions: ABSCESS: You have an abscess (boil). This a pus-forming infection, usually due to staph. Some boils may be left to drain on their own, but most require lancing. From the time the tender lump first appears, it may be three or four days before the abscess is ready to dev. Local heat and rest help at this stage of treatment. An antibiotic may prevent spread of the infection. Once the abscess is opened, packing may be placed into it. This is done so pus is not sealed inside by premature closure of the cavity. The packing will be removed at your follow-up visit or you may be advised to remove it yourself at home. Sometimes this packing must be replaced a few times during healing. The wound will heal with surprisingly little scar. Depending on the size and location of an abscess, healing can take one to four weeks. You may shower and wash the area around the incision site two or three times a day. Antibiotics may be prescribed, but are usually not necessary after an abscess has been drained. If you develop fever, chills, worsening pain, or increasing swelling in the area, call the doctor or return immediately. POST INCISION AND DRAINAGE: You have had an incision made to allow drainage of an abscess. The incision must remain open so that pus and debris can drain from the wound. If the abscess cavity is large, packing is placed. This keeps the tissues from collapsing and trapping pus inside, while the body shrinks the cavity. The packing may need to be replaced every day or two. The physician will instruct you on the packing. Keep a bulky dressing over the area. Replace it if it becomes saturated with blood or pus. Do not disturb the packing (if present). You may shower and cleanse the area with gentle soap and warm water two or three times a day. Local warmth may be soothing, and may promote faster healing. Return if you develop high fever or chills, or if you note spreading redness, increasing swelling, or increasing tenderness. Clindamycin You have been given a prescription for the antibiotic clindamycin. It is often prescribed for infections in the mouth, such as dental infections or abscesses, and for skin infections due to MRSA. It's important that you take all the medication, unless instructed otherwise by your physician. Failure to complete the entire course can result in relapse of your condition. Common side effects of antibiotics include nausea, intestinal cramping, or diarrhea. Women may develop vaginal yeast infections, and babies can get yeast (thrush) in the mouth following the use of antibiotics. Contact your physician if you develop significant side effects from this medication. Allergy to this antibiotic can result in hives, wheezing, faintness, or itching. If symptoms of allergy occur, stop the medication and call the doctor. Epsom Salt Soaks Soak the wound area in a container of warm epsom salt water. If you can't get the wound area into a bucket or armas, use a folded towel soaked in the epsom salt solution and apply to the area. Use clean hot tap water (about the temperature of a very warm bath), mixing in about one (1) teaspoon for every pint of water. Two gallon --> 16 teaspoons Epsom Salts One gallon --> 8 teaspoons Epsom Salts Two quarts --> 4 teaspoons Epsom Salts One quart --> 2 teaspoons Epsom Salts Soak the wound for about 20 minutes while gently moving it around in the water. Repeat this four (4) times a day. FOLLOW-UP CARE: Most simple abscesses will not require a follow up visit. If you had packing placed in the abscess, remove it as instructed by the physician. If you have been referred to a physician for follow-up care, call the physicians office for an appointment as you were instructed or within the next two days. If you experience worsening or a significant change in your symptoms, return to the Emergency Department at any time for re-evaluation. These inform your [employer] tomorrow all of this large abscess that has been I&D did that you have been started on clindamycin. Please also follow-up with the ED tomorrow and have this abscess reexamined as it is very large and you are 33 weeks . Prescriptions: Clindamycin HCl 300 mg PO Q6 #28 capsule Forms: Return to Work Referrals: KOFFI SUAREZ MD [Primary Care Provider] - Follow up as needed
[2019-06-21 01:14] VITALS: BP 129/86
== END 2019-06-21 01:30 | disposition home or self-care (01) ==
LOC: ER 20:29
DX: O26.893 Other specified pregnancy related conditions, third trimester (principal); L02.31 Cutaneous abscess of buttock; Z3A.33 33 weeks gestation of pregnancy
CPT/HCPCS: 99282; 87070; 87205; 87075; 87077; 87186; 10061; J3490 ×2

== ENCOUNTER 2019-06-22 12:28 | Emergency (ER) | payer MEDICAID ==
[2019-06-22 12:33] VITALS: BP 110/76
--- NOTE | 2019-06-22 12:37 | ER Document Report ---
ED Medical Screen (RME) - General Chief Complaint: Wound Recheck Stated Complaint: WOUND RECHECK Time Seen by Provider: 06/22/19 12:34 Primary Care Provider: KOFFI SUAREZ MD [Primary Care Provider] - Follow up as needed TRAVEL OUTSIDE OF THE [place] IN LAST 30 DAYS: No - HPI Notes: 06/22/19 12:36 Patient is a 24-year-old female who presents status post incision and drainage 2 days ago for wound reevaluation. She has been taking her medicines as directed. No other concerns or complaints. I have treated and performed a rapid initial assessment of this patient. A comprehensive ED assessment and evaluation of the patient, analysis of test results and completion of medical decision making process will be conducted by additional ED providers. PHYSICAL EXAMINATION: GENERAL: Well-appearing, well-nourished and in no acute distress. A&Ox4. Answers questions appropriately. - Related Data Allergies/Adverse Reactions: No Known Allergies Allergy (Verified 02/13/19 08:55) Past Medical History Pulmonary Medical History: Reports: Hx Bronchitis Denies: Hx Asthma, Hx Pneumonia Neurological Medical History: Reports: Hx Migraine Renal/ Medical History: Denies: Hx Peritoneal Dialysis - Immunizations Immunizations up to date: Yes Hx Diphtheria, Pertussis, Tetanus Vaccination: Yes Physical Exam - Vital signs Vitals: Temp Pulse Resp BP Pulse Ox 97.5 F 71 24 H 110/76 100 06/22/19 12:33 06/22/19 12:33 06/22/19 12:33 06/22/19 12:33 06/22/19 12:33 Course - Vital Signs Vital signs: Temp Pulse Resp BP Pulse Ox 97.5 F 71 24 H 110/76 100 06/22/19 12:33 06/22/19 12:33 06/22/19 12:33 06/22/19 12:33 06/22/19 12:33 Doctor's Discharge - Discharge Referrals: KOFFI SUAREZ MD [Primary Care Provider] - Follow up as needed
--- NOTE | 2019-06-22 13:25 | ER Document Report ---
ED General - General Chief Complaint: wound check Stated Complaint: WOUND RECHECK Time Seen by Provider: 06/22/19 12:34 Primary Care Provider: KOFFI SUAREZ MD [Primary Care Provider] - Follow up in 3-5 days Notes: 24-year-old female presents for wound check after I&D 2 days ago. Patient had abscess to left buttock that was I&D on Friday here in this ER. Patient was placed on clindamycin. Patient states packing fell out this morning while she was in the shower. Patient is approximately 33 weeks . Patient states she has had a abscess previously on the right buttock. Patient states it feels like it is getting better. Patient denies any fever or related complaints. TRAVEL OUTSIDE OF THE [place] IN LAST 30 DAYS: No - Related Data Allergies/Adverse Reactions: No Known Allergies Allergy (Verified 02/13/19 08:55) Past Medical History - Social History Smoking Status: Never Smoker Chew tobacco use (# tins/day): No Frequency of alcohol use: None Drug Abuse: None Family History: Reviewed & Not Pertinent, Other - asthma Patient has suicidal ideation: No Patient has homicidal ideation: No Pulmonary Medical History: Reports: Hx Bronchitis Denies: Hx Asthma, Hx Pneumonia Neurological Medical History: Reports: Hx Migraine Renal/ Medical History: Denies: Hx Peritoneal Dialysis - Immunizations Immunizations up to date: Yes Hx Diphtheria, Pertussis, Tetanus Vaccination: Yes Review of Systems - Review of Systems Notes: Constitutional: Negative for fever. HENT: Negative for sore throat. Eyes: Negative for visual changes. Cardiovascular: Negative for chest pain. Respiratory: Negative for shortness of breath. Gastrointestinal: Negative for abdominal pain, vomiting or diarrhea. Genitourinary: Negative for dysuria. Musculoskeletal: Negative for back pain. Skin: Positive for abscess. Negative for rash. Neurological: Negative for headaches, weakness or numbness. 10 point ROS negative except as marked above and in HPI. Physical Exam - Vital signs Vitals: Temp Pulse Resp BP Pulse Ox 97.5 F 71 24 H 110/76 100 06/22/19 12:33 06/22/19 12:33 06/22/19 12:33 06/22/19 12:33 06/22/19 12:33 - Notes Notes: GENERAL: Well-appearing, well-nourished and in no acute distress. HEAD: Atraumatic, normocephalic. EYES: Extraocular movements intact, sclera anicteric, conjunctiva are normal. NECK: Normal range of motion, supple without lymphadenopathy or JVD. EXTREMITIES: Normal range of motion, no pitting or edema. No clubbing or cyanosis. NEUROLOGICAL: Cranial nerves II through XII grossly intact. Normal speech, normal gait. PSYCH: Normal mood, normal affect. SKIN: Improving abscess, no erythema, approx 3 cm area seen, no purulent drainage. Course - Re-evaluation Re-evalutation: 06/22/19 24-year-old female presents with wound recheck of left buttock abscess. Patient had I&D 2 days ago and was placed on clindamycin. Patient notes improvement in abscess. Area is approximately 3 cm with no erythema or purulent drainage. Wound culture has not resulted yet. Afebrile. Nontoxic, well- appearing. Patient has no related complaints. Patient instructed to continue clindamycin unless we call to change it based off wound culture results. Patient given close follow-up with PCP and strict return precautions. Patient voices understanding and agrees with plan of care. - Vital Signs Vital signs: Temp Pulse Resp BP Pulse Ox 97.5 F 71 16 110/76 100 06/22/19 12:33 06/22/19 12:33 06/22/19 13:31 06/22/19 12:33 06/22/19 12:33 Discharge - Discharge Clinical Impression: Wound check, abscess Condition: Stable Disposition: HOME, SELF-CARE Instructions: Post Incision and Drainage Additional Instructions: Please continue taking antibiotics unless we call you to change it based off your wound culture. Return to ER for any worsening symptoms, including redness, increased swelling, increased pain, fever, pus drainage, or any other symptoms that are concerning to you. Referrals: KOFFI SUAREZ MD [Primary Care Provider] - Follow up in 3-5 days
== END 2019-06-22 13:31 | disposition home or self-care (01) ==
LOC: ER 12:28
DX: L02.31 Cutaneous abscess of buttock (principal); Z33.1 Pregnant state, incidental; Z3A.33 33 weeks gestation of pregnancy
CPT/HCPCS: 99282

== ENCOUNTER 2019-07-05 14:58 | Outpatient (CLI) | payer MEDICAID | END 2019-07-05 16:43 | disposition home or self-care (01) | LOC: LC 14:58 | PROVIDERS: ATTEND Obstetrics & Gynecology | PROC: 4A1HXCZ Monitoring of Products of Conception, Cardiac Rate, External Approach (ICD-10-PCS; principal; 2019-07-05) | DX: O36.5930 Maternal care for other known or suspected poor fetal growth, third trimester, not applicable or unspecified (principal); Z3A.35 35 weeks gestation of pregnancy | CPT/HCPCS: 59025 ==

== ENCOUNTER 2019-07-18 02:04 | Outpatient (CLI) | payer MEDICAID ==
--- NOTE | 2019-07-18 02:05 | Non Stress Test Report ---
Non Stress Test Datetime Report Generated by CPN: 07/18/2019 02:05 DEMOGRAPHIC Test Number: 1 MONITORING Monitor Explained: Monitor Explained; Test Explained; Patient Verbalized Understanding Time on Monitor: 07/05/2019 15:07 Time off Monitor: 07/05/2019 16:34 NST Duration: 87 NST INTERVENTIONS NST Interventions: PO Hydration Physician Notified NST: NRobertson,CNM BABY A: [id number] BABY A Movement : Present Contraction Frequency : Irregluar FHR Baseline : 130 Accelerations : 15X15 Decelerations : None Variability : Moderate 6-25bpm NST Review: Meets Criteria for Reactive NST NST Review and Verified By : Alma Caruso RN NST Results: Reactive NST REPORT Report Trigger: Send Report
[2019-07-18 02:50] LABS: APPEARANCE,URINE CLEAR; BILIRUBIN,URINE NEGATIVE (NEGATIVE); COLOR,URINE YELLOW; GLUCOSE, URINE NEGATIVE (NEGATIVE); KETONES,URINE NEGATIVE (NEGATIVE); LEUKOCYTE ESTERASE,URINE MODERATE (NEGATIVE); NITRITE,URINE NEGATIVE (NEGATIVE); PROTEIN,URINE NEGATIVE (NEGATIVE)
[2019-07-18 02:56] LABS: URINE AMPHETAMINES SCREEN NEGATIVE; URINE BARBITURATES SCREEN NEGATIVE; URINE BENZODIAZEPINES SCREEN NEGATIVE; URINE COCAINE SCREEN NEGATIVE; URINE MARIJUANA (THC) SCREEN NEGATIVE; URINE METHADONE SCREEN NEGATIVE; URINE PHENCYCLIDINE SCREEN NEGATIVE
--- NOTE | 2019-07-18 06:51 | RADIOLOGY REPORT (SQ) ---
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 TECHNIQUE: Transverse and longitudinal real time images of the abdomen were obtained for biophysical profile score. COMPARISON: None available FINDINGS: Observation for at least 20 minutes demonstrates: breathin muscle tone: 2 Acute motion and: 2 Amniotic fluid volume: 2 Total biophysical profile score of 8/8. A single intrauterine with the fetus cephalic in position is seen. The heart rate is approximately 137 beats per minute. Amniotic fluid index is approximately 12.5 cm, with the deepest vertical pocket of 4.1 cm. The internal organs were not well visualized, due to the late gestational age. The placenta is anterior. Grade 2 changes are seen at the placenta. IMPRESSION: A total biophysical profile score is 8 out of 8 was obtained. A single, live intrauterine is cephalic in position.
== END 2019-07-18 06:00 | disposition home or self-care (01) ==
LOC: LC 02:04
PROVIDERS: ATTEND Obstetrics & Gynecology
PROC: 4A1HXCZ Monitoring of Products of Conception, Cardiac Rate, External Approach (ICD-10-PCS; principal; 2019-07-18)
DX: O36.8130 Decreased fetal movements, third trimester, not applicable or unspecified (principal); Z3A.35 35 weeks gestation of pregnancy
CPT/HCPCS: 59025; 76819; 80307; 81001

== ENCOUNTER 2019-07-19 14:50 | Outpatient (CLI) | payer MEDICAID ==
--- NOTE | 2019-07-19 16:15 | Non Stress Test Report ---
Non Stress Test Datetime Report Generated by CPN: 07/19/2019 16:15 DEMOGRAPHIC EGA NST: 37.3 INDICATION Indication for Study (NST) Other: nonreactive NST in office VITAL SIGNS Temperature - NST: 98.8 Pulse - NST: 87 RESP - NST: 18 NBPSYS NST: 119 NBPDIA NST: 76 MONITORING Monitor Explained: Monitor Explained; Test Explained; Patient Verbalized Understanding Time on Monitor: 07/19/2019 15:12 Time off Monitor: 07/19/2019 15:55 NST Duration: 43 NST INTERVENTIONS NST Interventions: PO Hydration Physician Notified NST: A. Carter, CNM BABY A: [id number] BABY A Movement : Present Contraction Frequency : none FHR Baseline : 130 Accelerations : 15X15 Decelerations : None Variability : Moderate 6-25bpm NST Review: Meets Criteria for Reactive NST NST Review and Verified By : C [place] RN NST Results: Reactive NST COMMENTS NST Comments: provider on unit reviewing FHT strip NST REPORT Report Trigger: Send Report
== END 2019-07-19 16:04 | disposition home or self-care (01) ==
LOC: LC 14:50
PROVIDERS: ATTEND Obstetrics & Gynecology
PROC: 4A1HXCZ Monitoring of Products of Conception, Cardiac Rate, External Approach (ICD-10-PCS; principal; 2019-07-19)
DX: Z34.83 Encounter for supervision of other normal pregnancy, third trimester (principal); Z3A.37 37 weeks gestation of pregnancy
CPT/HCPCS: 59025

== ENCOUNTER 2019-07-29 15:08 | Inpatient (IN) | payer MEDICAID ==
[2019-07-29 16:02] LABS: APPEARANCE,URINE SLIGHTLY-CLOUDY; BILIRUBIN,URINE NEGATIVE (NEGATIVE); COLOR,URINE YELLOW; GLUCOSE, URINE NEGATIVE (NEGATIVE); KETONES,URINE NEGATIVE (NEGATIVE); LEUKOCYTE ESTERASE,URINE SMALL (NEGATIVE); NITRITE,URINE NEGATIVE (NEGATIVE); PROTEIN,URINE 30 mg/dL (NEGATIVE)
[2019-07-29 16:25] LABS: URINE AMPHETAMINES SCREEN NEGATIVE; URINE BARBITURATES SCREEN NEGATIVE; URINE BENZODIAZEPINES SCREEN NEGATIVE; URINE COCAINE SCREEN NEGATIVE; URINE MARIJUANA (THC) SCREEN NEGATIVE; URINE METHADONE SCREEN NEGATIVE; URINE PHENCYCLIDINE SCREEN NEGATIVE
[2019-07-29] MEDS ORDERED: LIDOCAINE 1% INJ-PF (10 MG/ML) 30 ML SDV ONE (18:17)
[2019-07-29] MEDS ORDERED: MISOPROSTOL 0.2 MG TABLET ONE (18:17)
[2019-07-29] MEDS ORDERED: OXYTOCIN 10 UNIT/ML VIAL ONE (18:17)
[2019-07-29] MEDS ORDERED: DINOPROSTONE 10 MG VAGINAL INSERT.SR ONE ×2 (18:18→21:41)
[2019-07-29] MEDS ORDERED: OXYTOCIN/NORMAL SALINE 20 UNIT/1,000 ML RTUINJ ONE (18:18)
[2019-07-29] MEDS ORDERED: RINGERS SOLUTION,LACTATED 300 ML IV ONE (18:20)
[2019-07-29] MEDS ORDERED: DINOPROSTONE 10 MG VAGINAL INSERT.SR PV ONE (18:20)
[2019-07-29] MEDS ORDERED: ACETAMINOPHEN 325 MG TABLET PO PRN (18:20)
[2019-07-29] MEDS ORDERED: OXYTOCIN/NORMAL SALINE 20 UNIT/1,000 ML RTUINJ IV PRN (18:20)
[2019-07-29] MEDS ORDERED: ZOLPIDEM TARTRATE 5 MG TABLET PO PRN (18:20)
[2019-07-29] MEDS ORDERED: MAG HYDROX/AL HYDROX/SIMETH SUSP 30 ML UDCUP PO PRN (18:20)
[2019-07-29] MEDS ORDERED: RINGERS SOLUTION,LACTATED 1,000 ML IV PRN (18:20)
--- NOTE | 2019-07-29 18:20 | Admission Physical ---
Datetime Report Generated by CPN: 07/29/2019 18:20 CURRENT ADMISSION Chief Complaint: Other Indication for Induction: IUGR Admit Impression : Induction of Labor Admit Plan: Admit to Unit; Initiate Labor Induction Protocol ALLERGIES Medication Allergies: No Medication Allergies: No Known Allergies (07/19/2019) Latex: No Latex Allergies OBSTETRICAL HISTORY EDC: 08/06/2019 00:00 : 3 Para: 1 : 1 Livin Gestational Diabetes: No Rh Sensitization: No Incompetent Cervix: No IGOR: No Infertility: No ART Treatment: No Uterine Anomaly: No IUGR: Yes Hx Previous C/S: No Macrosomia: No Hx Loss/Stillborn: Yes PIH: No Hx : No Placenta Previa/Abruption: No Depression/PP Depression: Yes PTL/PROM: No Post Hemorrhage: No Current Procedures: Ultrasound; NST Obstetrical History Comments: G1: 2013 still born- 37 weeks- not in prenatals pt. reports that she has never reported this still born to her DRs G2: 2017 39 weeks, . 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 Subchorionic bleed at beg. of G3: current- anemia SEE RECORDS Alcohol: No Marijuana : No Cocaine: No Other Illicit Drugs: No Cigarettes: Former Smoker. 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: No Heart Disease: No Hosp/Surgery: Yes Autoimmune Disorder: No Anesthetic Complications: No Kidney Disease: No Abnormal Pap Smear: No Neuro/Epilepsy: No Psychiatric Disorders: No Other Medical Diseases: No Hepatitis/Liver Disease: No Significant Family History: No Varicosities/Phlebitis: No Trauma/Violence : No Thyroid Dysfunction: No Medical History Comments: childbirth x3 INFECTIOUS HISTORY Gonorrhea: No Genital Herpes: No Chlamydia: Yes Tuberculosis: No Syphilis: No Hepatitis: No HIV/AIDS Exposure: No Rash or Viral Illness: No HPV: No PHYSICAL EXAM General: Normal HEENT: Normal Neurologic: Normal Thyroid: Normal Heart: Normal Lungs: Normal Breast: Deferred Back: Normal Abdomen: Normal Genitourinary Exam: Normal Extremities: Normal DTRs: Normal Pelvic Type: Adequate Vital Signs: Reviewed FETUS A EGA: 38.6 Monitoring: External US FHR- Baseline: 120 Variability: Moderate 6-25bpm Decelerations: None FHR Category: Category I Presentation: Vertex Admit Comment: admit for IUGR and low fluid PLANS FOR LABOR AND DELIVERY Labor and Delivery: Placenta Request Pain Management: Epidural Feeding Preference: Both Benefit of Breast Feed Discussed: Yes Circumcision: Yes INFORMED CONSENT Signature: with User ID: [email or web address]
--- NOTE | 2019-07-29 18:55 | RADIOLOGY REPORT (SQ) ---
EXAM DESCRIPTION: U/S PROFILE W/O STRESS COMPLETED DATE/TIME: 07/29/2019 5:51 pm REASON FOR STUDY: BPP - nonreactive nst COMPARISON: 07/18/2019 TECHNIQUE: Limited mattson-scale realtime and static images of the fetus to measure specified parameter s. LIMITATIONS: None. FINDINGS: HEART RATE: 153 beats per minute. ANT: 1.7 cm. BREATHING MOVEMENT: 2 points. MOVEMENT: 2 points. POSTURE AND TONE: 2 points. QUALITATIVE ANT: 0 points. OTHER: No other significant finding. IMPRESSION: BIOPHYSICAL PROFILE: 11/28. Oligohydramnios. Trimester of : Third - 28 weeks to delivery COMMENT: BREATHING MOVEMENTS: 2 POINTS: PRESENT 0 POINTS: ABSENT MOTION: 2 POINTS: PRESENT 0 POINTS: ABSENT TONE: 2 POINTS: PRESENT 0 POINTS: ABSENT AMNIOTIC FLUID VOLUME: 2 POINTS: LARGEST POCKET GREATER THAN 2 CM DEPTH. 0 POINTS: NO POCKET OF 2 CM. TECHNICAL DOCUMENTATION: JOB ID: [id number] [employer]- All Rights Reserved Reading location - IP/workstation name: [email or web address]
[2019-07-29 19:19] LABS: HEMATOCRIT 29.3 % (36.0-47.0); HEMOGLOBIN 9.6 g/dL (12.0-15.5); MEAN CORPUSCULAR HGB CONC 32.6 g/dL (32.0-36.0); MEAN CORPUSCULAR VOLUME 83 fl (80-97); PLATELET COUNT 192 10^3/uL (150-450); RED BLOOD COUNT 3.54 10^6/uL (3.72-5.28); RED CELL DISTRIBUTION WIDTH 17.1 % (11.5-14.0); WHITE BLOOD COUNT 11.2 10^3/uL (4.0-10.5)
[2019-07-30] MEDS ORDERED: BUPIVACAINE HCL 0.25 % INJ/PF (2.5 MG/1 ML) 30 ML VIAL ONE (00:27)
[2019-07-30] MEDS ORDERED: EPHEDRINE SULFATE INJ 50 MG/1 ML AMPULE ONE (00:27)
[2019-07-30] MEDS ORDERED: FENTANYL/BUPIVACAINE/NS/PF 300 MCG/150 ML RTUINJ EPI ONE (00:27)
[2019-07-30] MEDS ORDERED: FENTANYL CITRATE INJ/PF 100 MCG/2 ML AMPUL ONE (00:28)
[2019-07-30] MEDS ORDERED: DIPH/PERTUSS(ACELL)/TETANUS VAC/PF 0.5 ML SYR (>=10YO) IM PRN (02:41)
[2019-07-30] MEDS ORDERED: ZOLPIDEM TARTRATE 5 MG TABLET PO PRN (02:41)
[2019-07-30] MEDS ORDERED: DIBUCAINE 1% OINTMENT 28 GM TP PRN (02:41)
[2019-07-30] MEDS ORDERED: BENZOCAINE/MENTHOL AEROSOL SPRAY 56 ML TOP PRN (02:41)
[2019-07-30] MEDS ORDERED: GLYCERIN/WITCH HAZEL LEAF 1 EACH MED..WIPE TP PRN (02:41)
[2019-07-30] MEDS ORDERED: OXYTOCIN/NORMAL SALINE 20 UNIT/1,000 ML RTUINJ IV PRN (02:41)
[2019-07-30] MEDS ORDERED: DIPHENHYDRAMINE HCL 25 MG CAPSULE PO PRN (02:41)
[2019-07-30] MEDS ORDERED: PSEUDOEPHEDRINE HCL 30 MG TABLET PO PRN (02:41)
[2019-07-30] MEDS ORDERED: ACETAMINOPHEN WITH CODEINE #3 TABLET PO PRN ×2 (02:41)
[2019-07-30] MEDS ORDERED: PROMETHAZINE HCL INJ 25 MG/1 ML VIAL IV PRN (02:41)
[2019-07-30] MEDS ORDERED: MAGNESIUM HYDROXIDE SUSP 30 ML UDCUP PO PRN (02:41)
[2019-07-30] MEDS ORDERED: ACETAMINOPHEN 650 MG SUPP.RECT PR PRN (02:41)
[2019-07-30] MEDS ORDERED: NA PHOS,M-B/NA PHOS,DI-BA (ADULT) 133 ML ENEMA PR PRN (02:41)
[2019-07-30] MEDS ORDERED: PROMETHAZINE HCL 25 MG TABLET PO PRN (02:41)
[2019-07-30] MEDS ORDERED: MEASLES,MUMPS&RUBELLA VACC/PF 0.5 ML VIAL SUBCUT PRN (02:41)
[2019-07-30] MEDS ORDERED: PROMETHAZINE HCL 25 MG SUPP.RECT PR PRN (02:41)
[2019-07-30] MEDS ORDERED: IBUPROFEN 800 MG TABLET ONE (05:52)
[2019-07-30] MEDS: IBUPROFEN 800 MG TABLET PO SCH ×3 (06:00→22:02)
--- NOTE | 2019-07-30 08:25 | Warning Signs in Babies ---
VOD Warning Signs Datetime Report Generated by [facility]: 07/30/2019 08:25 VOD#608 -Warning Signs in Babies: Viewed with Parent(s)/Family (07/30/2019 08:24:Ashlee Pope RN)
[2019-07-30] MEDS ORDERED: PRENATAL VITAMIN W DHA CAPSULE PO ONE (09:48)
[2019-07-30] MEDS ORDERED: SENNOSIDES/DOCUSATE 8.6-50 MG 1 EACH TABLET ONE (09:48)
[2019-07-30] MEDS ORDERED: FAMOTIDINE 20 MG TABLET ONE (09:48)
[2019-07-30] MEDS ORDERED: FERROUS SULFATE 325 MG TABLET PO ONE ×2 (09:49→17:09)
[2019-07-30] MEDS ORDERED: DOCUSATE SODIUM 100 MG CAPSULE ONE ×2 (09:49→17:09)
[2019-07-30] MEDS: FAMOTIDINE 20 MG TABLET PO SCH ×2 (10:32→22:02)
[2019-07-30] MEDS: DOCUSATE SODIUM 100 MG CAPSULE PO SCH ×2 (10:33→17:10)
[2019-07-30] MEDS: FERROUS SULFATE 325 MG TABLET PO SCH ×2 (10:33→17:10)
[2019-07-30] MEDS: PRENATAL VITAMIN W DHA CAPSULE PO SCH (10:33)
[2019-07-30] MEDS: SENNOSIDES/DOCUSATE 8.6-50 MG 1 EACH TABLET PO SCH (10:33)
[2019-07-30] MEDS ORDERED: ACETAMINOPHEN WITH CODEINE #3 TABLET ONE (10:39)
--- NOTE | 2019-07-30 11:05 | Delivery Summary ---
Del Sum A-C Datetime Report Generated by CPN: 07/30/2019 11:05 DELIVERY PERSONNEL DELIVERY PERSONNEL: [id number] Delivery Doctor:: Samina Koehler MD Labor and Delivery Nurse:: Ainsley He RNpig conveyor operator Nurse:: Amanda De Leon RN Nursery Nurse:: Susanna Swan RN Television Cable Installer/UNDERCUTTER: Patricia Green, ST MATERNAL INFORMATION Delivery Anesthesia: Epidural Medications After Delivery: Pitocin Bolus-Please Comment Meds After Delivery Comment: Pitocin 20 units/1000ml NSS Delivery QBL: 200 Maternal Complications: None LABOR SUMMARY EDC: 08/06/2019 00:00 No. Babies in Womb: 1 Attempted: No Labor Anesthesia: Epidural LABOR INFORMATION Reason for Induction: Intrauterine Growth Retardation Onset of Labor: 07/29/2019 22:55 Complete Dilatation: 07/30/2019 02:24 Cervical Ripening Agents: Cervidil Oxytocin: N/A Group B Beta Strep: positive Antibiotics # of Doses: 0 Steroids Given: None Reason Steroids Not Administered: Not Applicable STAGES OF LABOR Stage 1 hr: 3 Stage 1 min: 29 Stage 2 hr: 0 Stage 2 min: 3 Stage 3 hr: 0 Stage 3 min: 3 Total Time in Labor hr: 3 Total Time in Labor min: 35 VAGINAL DELIVERY Episiotomy: None Laceration #1: None Laceration Extension #1: N/A Laceration Repair: Not Applicable Sponge Count Correct: N/A CSECTION DELIVERY Primary Indication: N/A Secondary Indication: N/A CSection Incidence: N/A Labor: N/A Elective: N/A CSection Incision: N/A BABY A INFORMATION Infant Delivery Date/Time: 07/30/2019 02:27 Method of Delivery: Vaginal Born in Route : No : N/A Forceps: N/A Vacuum Extraction: N/A Shoulder Dystocia : No PRESENTATION/POSITION BABY A Presentation: Cephalic Cephalic Presentation: N/A Vertex Position: OA Breech Presentation: N/A PLACENTA INFORMATION BABY A Placenta Delivery Time : 07/30/2019 02:30 Placenta Method of Delivery: Spontaneous Placenta Status: Delivered SCORES BABY A Heart Rate 1 min: >100 bpm Resp Effort 1 min: Good Cry Reflex Irritability 1 min: Cough or Sneeze or Pulls Away Muscle Tone 1 min: Active Motion Color 1 min: Body [place], Extremities Blue Resuscitation Effort 1 min: Tactile Stimulation SCORE 1 MIN: 9 Heart Rate 5 min: >100 bpm Resp Effort 5 min: Good Cry Reflex Irritability 5 min: Cough or Sneeze or Pulls Away Muscle Tone 5 min: Active Motion Color 5 min: Body [place], Extremities Blue Resuscitation Effort 5 min: Tactile Stimulation SCORE 5 MIN: 9 INFORMATION BABY A Gestational Age at Delivery: 39.0 Gestational Status: Full Term- 39- 40.6 Weeks Infant Outcome : Liveborn Infant Condition : Stable Sex: Male IDENTIFICATION BABY A Verification Date/Time: 07/30/2019 03:03 ID Band Number: [id number] Mother's Name Verified: Yes Infant RN Verifying : Ruthann De Leon RN and Inga He RN CORD INFORMATION BABY A No. Cord Vessels: 3 Nuchal Cord : N/A Cord Blood Taken: Yes-For Eval (Mom's Blood Type - or O+) Suction: None ASSESSMENT BABY A Complications: None Physical Findings at Delivery: Within Normal Limits Infant Respirations: Appears Normal Skin to Skin: Yes Care By: HILLARY Pandey Transferred To: Remains with Mother SIGNATURES Signature: with User ID: Isaac
[2019-07-31] MEDS: IBUPROFEN 800 MG TABLET PO SCH ×3 (05:57→21:58)
[2019-07-31 08:21] LABS: HEMATOCRIT 23.1 % (36.0-47.0); MEAN CORPUSCULAR HEMOGLOBIN 28.1 pg (27.0-33.4); MEAN CORPUSCULAR HGB CONC 33.8 g/dL (32.0-36.0); MEAN CORPUSCULAR VOLUME 83 fl (80-97); PLATELET COUNT 163 10^3/uL (150-450); RED BLOOD COUNT 2.78 10^6/uL (3.72-5.28); RED CELL DISTRIBUTION WIDTH 17.2 % (11.5-14.0); WHITE BLOOD COUNT 9.1 10^3/uL (4.0-10.5)
[2019-07-31 08:32] LABS: HEMOGLOBIN 7.8 g/dL (12.0-15.5)
[2019-07-31] MEDS: DOCUSATE SODIUM 100 MG CAPSULE PO SCH ×2 (10:44→17:12)
[2019-07-31] MEDS: FAMOTIDINE 20 MG TABLET PO SCH ×2 (10:44→21:59)
[2019-07-31] MEDS: PRENATAL VITAMIN W DHA CAPSULE PO SCH (10:44)
[2019-07-31] MEDS: SENNOSIDES/DOCUSATE 8.6-50 MG 1 EACH TABLET PO SCH (10:44)
[2019-07-31] MEDS: FERROUS SULFATE 325 MG TABLET PO SCH ×2 (10:45→17:12)
--- NOTE | 2019-07-31 10:45 | PDOC PROGRESS REPORT ---
Subjective-OB Progress Note for:: 07/31/19 Subjective: reports bleeding slowing, pain controlled with current meds, denies needs Physical Exam (OB) Vital Signs: Temp Pulse Resp BP Pulse Ox 97.9 F 73 14 122/80 99 07/31/19 07:40 07/31/19 07:40 07/31/19 07:40 07/31/19 07:40 07/31/19 07:40 Intake & Output 07/30/19 07/31/19 08/01/19 06:59 06:59 06:59 Intake Total 1500 Balance 1500 Weight 74.3 kg - Abdomen Description: Soft, Round Hernia Present: No Fundal Description: Firm, Midline Fundal Height: u/u - u/2 - Abdominal Distension: No distension Tenderness: Nontender - Extremities Lower extremities: Kofi's sign - neg Calf: Normal, Nontender Objective-Diagnostic Laboratory: 07/31/19 07:46 07/31/19 07:46 WBC 9.1 RBC 2.78 L Hgb 7.8 L Hct 23.1 L MCV 83 MCH 28.1 MCHC 33.8 RDW 17.2 H Plt Count 163 Assessment and Plan(PN) - Assessment and Plan (1) Anemia due to acute blood loss Is this a current diagnosis for this admission?: Yes (2) IUGR (intrauterine growth restriction) Is this a current diagnosis for this admission?: Yes (3) Vaginal delivery Is this a current diagnosis for this admission?: Yes (4) Active labor at term Is this a current diagnosis for this admission?: Yes (5) Meconium in amniotic fluid Is this a current diagnosis for this admission?: Yes - Time Spent with Patient Time with patient: Less than 15 minutes Medications reviewed and adjusted accordingly: Yes - Disposition Anticipated Discharge: Home Within: within 24 hours
[2019-08-01] MEDS: IBUPROFEN 800 MG TABLET PO SCH ×2 (06:41→13:03)
[2019-08-01] MEDS: PRENATAL VITAMIN W DHA CAPSULE PO SCH (09:20)
[2019-08-01] MEDS: FERROUS SULFATE 325 MG TABLET PO SCH (09:20)
[2019-08-01] MEDS: FAMOTIDINE 20 MG TABLET PO SCH (09:20)
[2019-08-01] MEDS: SENNOSIDES/DOCUSATE 8.6-50 MG 1 EACH TABLET PO SCH (09:20)
[2019-08-01] MEDS: DOCUSATE SODIUM 100 MG CAPSULE PO SCH (09:20)
[2019-08-01 10:05] VITALS: BP 126/87
--- NOTE | 2019-08-01 11:32 | PDOC DISCHARGE SUMMARY ---
Impression - Admit/DC Date/PCP Admission Date/Primary Care Provider: 07/29/19 18:21 LEN LOCKWOOD MD Discharge Date: 08/01/19 - Discharge Diagnosis (1) Anemia due to acute blood loss Is this a current diagnosis for this admission?: Yes (2) IUGR (intrauterine growth restriction) Is this a current diagnosis for this admission?: Yes (3) Vaginal delivery Is this a current diagnosis for this admission?: Yes (4) Active labor at term Is this a current diagnosis for this admission?: Yes (5) Meconium in amniotic fluid Is this a current diagnosis for this admission?: Yes - Additional Information Discharge Diet: Regular Discharge Activity: Balance Activity w/Rest, Pelvic Rest Referrals: LEN LOCKWOOD MD [Primary Care Provider] - Prescriptions: Ibuprofen [Motrin 800 mg Tablet] 800 mg PO Q8HP PRN #60 tablet PRN Reason: Home Medications: Vit/Iron Fum/Folic AC [ Tablet] 1 each PO DAILY 09/22/17 Ferrous Sulfate [Feosol 325 mg Tablet] 325 mg PO BID tablet 08/01/19 Ibuprofen [Motrin 800 mg Tablet] 800 mg PO Q8HP PRN #60 tablet 08/01/19 HPI Gestational Age: 39 Reason(s) for Admission: Induction of Labor Procedures: NST Intrapartum Procedure(s): Spontaneous Vaginal Delivery Results Laboratory Results: WBC 9.1 10^3/uL (4.0-10.5) 07/31/19 07:46 RBC 2.78 10^6/uL (3.72-5.28) L 07/31/19 07:46 Hgb 7.8 g/dL (12.0-15.5) L 07/31/19 07:46 Hct 23.1 % (36.0-47.0) L 07/31/19 07:46 MCV 83 fl (80-97) 07/31/19 07:46 MCH 28.1 pg (27.0-33.4) 07/31/19 07:46 MCHC 33.8 g/dL (32.0-36.0) 07/31/19 07:46 RDW 17.2 % (11.5-14.0) H 07/31/19 07:46 Plt Count 163 10^3/uL (150-450) 07/31/19 07:46 Urine Color YELLOW 07/29/19 15:31 Urine Appearance SLIGHTLY-CLOUDY 07/29/19 15:31 Urine pH 6.0 (5.0-9.0) 07/29/19 15:31 Ur Specific [place] 1.020 07/29/19 15:31 Urine Protein 30 mg/dL (NEGATIVE) H 07/29/19 15:31 Urine Glucose (UA) NEGATIVE mg/dL (NEGATIVE) 07/29/19 15:31 Urine Ketones NEGATIVE mg/dL (NEGATIVE) 07/29/19 15:31 Urine Blood NEGATIVE (NEGATIVE) 07/29/19 15:31 Urine Nitrite NEGATIVE (NEGATIVE) 07/29/19 15:31 Urine Bilirubin NEGATIVE (NEGATIVE) 07/29/19 15:31 Urine Urobilinogen 4.0 mg/dL (<2.0) H 07/29/19 15:31 Ur Leukocyte Esterase SMALL (NEGATIVE) H 07/29/19 15:31 Urine Ascorbic Acid NEGATIVE (NEGATIVE) 07/29/19 15:31 Membranes Rupture NEGATIVE (NEGATIVE) 07/29/19 15:31 Urine Opiates Screen NEGATIVE 07/29/19 15:31 Urine Methadone Screen NEGATIVE 07/29/19 15:31 Ur Barbiturates Screen NEGATIVE 07/29/19 15:31 Ur Phencyclidine Scrn NEGATIVE 07/29/19 15:31 Ur Amphetamines Screen NEGATIVE 07/29/19 15:31 U Benzodiazepines Scrn NEGATIVE 07/29/19 15:31 Urine Cocaine Screen NEGATIVE 07/29/19 15:31 U Marijuana (THC) Screen NEGATIVE 07/29/19 15:31 RPR NONREACTIVE (NONREACTIVE) 07/29/19 19:02 Blood Type O POSITIVE 07/29/19 19:02 Antibody Screen NEGATIVE 07/29/19 19:02 Impressions: Stress Test 07/29/19 15:56 IMPRESSION: BIOPHYSICAL PROFILE: 11/28. Oligohydramnios. Trimester of : Third - 28 weeks to delivery Plan Health Concerns: hx PPD x2, hx IUFD Plan of Treatment: follow up in one week at [facility] for PPD screen
== END 2019-08-01 13:09 | disposition home or self-care (01) | DRG 806 ==
LOC: LC 15:08 → LR 18:21 → 2S 07-30 17:15
PROVIDERS: ADMIT Obstetrics & Gynecology; ATTEND Obstetrics & Gynecology
PROC: 10E0XZZ Delivery of Products of Conception, External Approach (ICD-10-PCS; principal; 2019-07-30)
DX: O36.5930 Maternal care for other known or suspected poor fetal growth, third trimester, not applicable or unspecified (principal); D62 Acute posthemorrhagic anemia; O41.03X0 Oligohydramnios, third trimester, not applicable or unspecified; Z37.0 Single live birth; O99.824 Streptococcus B carrier state complicating childbirth; O99.02 Anemia complicating childbirth; O99.334 Smoking (tobacco) complicating childbirth; F17.210 Nicotine dependence, cigarettes, uncomplicated; O77.0 Labor and delivery complicated by meconium in amniotic fluid; O09.293 Supervision of pregnancy with other poor reproductive or obstetric history, third trimester; Z3A.39 39 weeks gestation of pregnancy; Z86.19 Personal history of other infectious and parasitic diseases; Z87.59 Personal history of other complications of pregnancy, childbirth and the puerperium
CPT/HCPCS: 36415; 76819; 80307; 81005; 84112; 85027; 86592; 86850; 86900; 86901; 94760; J2590; J3010; J3490